=== PATIENT | male | born 1980 | race Caucasian/White ===

== ENCOUNTER → 2022-06-16 | Outpatient (CLI) | payer OTHER, SELFPAY ==
--- NOTE | 2022-06-16 17:13 | RAD_ITS ---
STUDY: X-RAY - RIGHT FOOT CLINICAL: Male, 42 years old. Pain in the arch of the foot. TECHNIQUE: 3 view(s) of the foot. COMPARISON: None. FINDINGS: Normal talus, calcaneus, and tarsal bones. Normal visualized subtalar, talonavicular, calcaneocuboid, tarsal and tarsometatarsal articulations. Normal metatarsi. Normal metatarsophalangeal joint of the great toe. Normal tibial and fibular sesamoid bones. Normal interphalangeal joint of the great toe. Normal phalanges of the great toe. Normal second through fifth metatarsophalangeal joints. Normal interphalangeal joints and phalanges of the lesser toes. The soft tissue structures are unremarkable. RAD/Foot min 3 Views IMPRESSION: Normal x-ray examination of the foot. Electronically Signed: Malvin Wilde DO at 18:28 EDT ,
--- NOTE | 2022-06-16 17:25 | RAD_ITS ---
STUDY: X-RAY - LEFT KNEE REASON FOR EXAM: Male, 42 years old. Chronic left knee pain. TECHNIQUE: 4 view(s) of the knee. COMPARISON: None. FINDINGS: Normal visualized distal femur. Normal visualized proximal tibia and fibula. Normal proximal tibiofibular articulation. There is no acute fracture, dislocation or destructive osseous pathology. Normal medial femorotibial compartment. Normal lateral femorotibial compartment. Normal patellofemoral articulation. There is no demonstrated joint effusion. The soft tissue structures are unremarkable. RAD/Knee 4 or More Views IMPRESSION: Normal x-ray examination of the left knee. Electronically Signed: Malvin Wilde DO at 18:28 EDT Reading Location ID and State: [facility] Tel [phone], Service support ,
== END | disposition home or self-care (01) ==
LOC: MTRAD 17:11
PROVIDERS: PCP Family Medicine; Referring Provider Family Medicine; Visit Provider Family Medicine
DX: M79.671 Pain in right foot (principal); M25.562 Pain in left knee
CPT/HCPCS: 73564; 73630

== ENCOUNTER 2024-02-01 23:35 | Inpatient (IN) | payer OTHER, SELFPAY ==
[2024-02-01 23:38] VITALS: BP 157/93; PULSE 68; RESP 18; TEMP 36.1; O2SAT 100; BMI 37.0
--- NOTE | 2024-02-01 23:55 | RAD_ITS ---
INDICATION: chest pain EXAMINATION/TECHNIQUE: X-RAY - XR Chest 1 View COMPARISON: No relevant prior comparison study available FINDINGS: LINES/DEVICES: None. LUNGS: The lungs are well expanded. No consolidation, edema or effusion. No pneumothorax. MEDIASTINUM AND CARDIOVASCULAR STRUCTURES: Cardiac silhouette not enlarged. Central airways and mediastinal contour are unremarkable. BONES AND SOFT TISSUES: No acute osseous abnormalities. RAD/Chest 1 View (Portable) IMPRESSION: No acute pulmonary finding. Electronically Signed: Chris Alejandre MD at 0:34 EDT ,
[2024-02-02] VITALS (16 sets, daily range): BP systolic 114–148; BP diastolic 70–102; PULSE 52–78; RESP 9–23; TEMP 36.1–36.7; O2SAT 93–100; BMI 37.2
[2024-02-02] MEDS: Ondansetron 4 MG/2 ML Vial IV (00:02)
--- NOTE | 2024-02-02 00:02 | EDS_ITS ---
HPI History of Present Illness Chief Complaint: Chest Pain Informant: patient and spouse/S.O. Narrative Narrative: Patient is a 44-year-old male who states he does not typically go to the doctor and denies any significant medical history. He also denies any history of smoking/nicotine use or illicit drug use. He states this evening he went out to the gym and was playing basketball. He states he did this without difficulty and once he returned home and sat down to relax developed bilateral chest/arm discomfort and broke out into a cold sweat. He states that the symptoms were not improving and he had concerned this was cardiac in nature and therefore he presents to the hospital for evaluation [facility] Medical History Heart defect Home Medications tadalafil 5 mg tablet (Cialis) 10 mg PO DAILY PRN sexual activity 02/01/24 [History Last Taken Unknown] Allergy/AdvReac Type Severity Reaction Status Date / Time No Known Allergies Allergy Verified 02/01/24 23:40 Family History Mother Myocardial infarction Father Heart disease Surgical History H/O knee surgery H/O repair of rotator cuff Social History household members: family housing: house Smoking Status: Smoker, status unknown tobacco type: cigarettes ROS ROS ED Constitutional Constitutional ED: Reports sweats; Denies chills or fever(s) Eyes Eyes: Denies change in vision ENT ENT ED: Denies sore throat Cardiovascular Cardiovascular: Reports chest pain; Denies palpitations or racing heartbeat Respiratory/Chest Respiratory/Chest: Denies cough or dyspnea Gastrointestinal Gastrointestinal: Denies abdominal pain, diarrhea, nausea or vomiting Genitourinary Genitourinary ED: Denies dysuria Musculoskeletal Musculoskeletal: Denies back pain or myalgias Integumentary Denies rash Neurologic Neurologic: Denies headache(s) Hematologic/Lymphatic Hematologic/Lymphatic: Denies easy bleeding or easy bruising EXAM Physical Exam Const Vital Signs: 02/01/24 23:38 02/02/24 00:07 05/09/24 00:07 Temperature 97 F L Temperature Source Temporal Pulse Rate 68 Respiratory Rate 18 Blood Pressure 157/93 H Blood Pressure Mean 114 Pulse Ox 100 100 100 Oxygen Delivery Method Room Air Nasal Cannula Nasal Cannula Oxygen Flow Rate (L/min) 2 2 Positive well nourished, well developed and obese General Appearance ED: well developed Nutritional Appearance: obese HEENT HEENT Narrative: Normocephalic atraumatic Eyes PERRL and EOMs intact bilaterally General Eye ED: Negative for scleral icterus Neck supple and no JVD Neck Narrative: No nuchal rigidity or meningeal signs Chest Wall palpation of chest normal Chest Narrative: No bony deformity or crepitance Resp normal respiratory effort and clear to auscultation bilaterally Cardio regular rate and regular rhythm Rate: other Other Details: Radial and carotid pulses are equal and symmetric GI normal to inspection, nondistended, normoactive bowel sounds, non-tender, non- distended and no masses GI Narrative: No pulsatile mass or fluid wave Auscultation: normoactive bowel sounds Palpation: soft Extremity normal to inspection Extremity Narrative: No asymmetric edema no pitting edema negative Homans' sign bilaterally Neuro oriented x3, CN's II-XII intact bilaterally and no sensory deficits noted Sensorium / Orientation: alert Motor Exam: strength 5/5 throughout Psych mental status grossly normal Skin no rashes or lesions noted Skin Narrative: Skin is diaphoretic in nature MDM MDM MDM Narrative Medical decision making narrative: Patient arrived to the ER hypertensive. He states that he does not typically see a doctor and does not have any known significant medical history but does report a history of MT in his mother and cardiac pacemaker in his father. He denies any illicit drug use or nicotine use but he is also overweight and a male over the age of 42 and therefore he does have risk factors for acute cardiovascular syndrome. An EKG was obtained which showed changes consistent with an inferior MT. Secondary to this a STEMI alert was activated. Case was discussed with the licensed dispensing optician on-call and he does agree with the diagnosis of acute STEMI. The patient was started on heparin and Brilinta and aspirin per STEMI protocol. Basic labs were obtained and he was taken to the cardiac Pricing Strategist for intervention. The patient did remain hemodynamically stable for his entire ER stay History & Record Review Discussion w/independent historian: Patient and Significant other Lab Data Attestation: I reviewed the patient's lab results. Labs: Laboratory Results - last 24 hr 02/02/24 00:01 WBC 15.7 H RBC 5.77 Hgb 15.7 Hct 47.1 MCV 81.6 MCH 27.2 MCHC 33.3 RDW Std Deviation 37.4 RDW Coeff of Anders 12.7 Plt Count 286 MPV 11.8 Immature Gran % (Auto) 0.300 Neut % (Auto) 64.7 Lymph % (Auto) 27.4 [place] % (Auto) 6.4 Eos % (Auto) 0.6 Baso % (Auto) 0.6 Absolute Neuts (auto) 10.2 H Absolute Lymphs (auto) 4.30 Nucleated RBC % 0 PT 14.3 INR 1.1 APTT 24.5 Sodium 141 Potassium 3.8 Chloride 109 H Carbon Dioxide 24.0 Anion Gap 8 BUN 24 H Creatinine 1.43 H Estim Creat Clear Calc 96.86 Est GFR (MDRD) Af Amer 70 Est GFR (MDRD) Non-Af 58 L BUN/Creatinine Ratio 16.8 Glucose 118 H Calcium 9.5 Troponin I High Sens 298 H* Radiography Diagnostic Testing: Clinical Impression(s) from Imaging Studies Chest X-Ray 02/01/24 23:55 IMPRESSION: No acute pulmonary finding. Electronically Signed: Chris Alejandre MD at 0:34 EDT , 1 view chest x-ray as interpreted by the emergency medicine physician reveals no acute infiltrate pneumothorax or pleural effusion Critical Care Time Critical Care Time: Yes Critical care time (excluding procedures): Discussing w/Patient &/or Family/Instruction Librarian, Discussing w/Consultants and - (Please note critical care time of 21 minutes) Discharge Plan Dx/Rx/DC Orders Clinical Impression: ST elevation (STEMI) myocardial infarction, Family history of coronary artery disease, Obesity (BMI 30-39.9) Disposition Disposition: Acute Care Hospital [facility] Discharge Date/Time: 02/02/24 00:30
[2024-02-02] MEDS: TICAGRELOR 90 MG TABLET 180 MG PO (00:03)
[2024-02-02] MEDS: Aspirin 81 MG TAB.CHEW 324 MG PO (00:03)
[2024-02-02] MEDS: HYDROmorphone 0.5 MG/0.5 ML SYRINGE IV (00:05)
[2024-02-02 00:14] LABS: Absolute Neutrophil Count 10.2 X10^3/uL (2.0-7.7); Basophil# 0.09 X10^3/uL; Basophil% 0.6 % (0-1); Eosinophils% 0.6 % (0-5); Hematocrit 47.1 % (40-54); Hemoglobin 15.7 g/dL (13.0-16.5); Lymphocyte % 27.4 % (19-41); Mean Corp Hgb Conc 33.3 g/dL (32-36); Mean Corpuscular Hgb 27.2 pg (27.0-32.0); Mean Corpuscular Volume 81.6 fL (80-94); Mean Platelet Vol. 11.8 fl (6.2-12.0); Monocyte# 1.01 X10^3/uL; Monocyte% 6.4 % (0-10); NRBC Flagged by Analyzer 0 % (0-5); Neutrophil # 10.17 X10^3/uL (2.7-7.7); Neutrophil % 64.7 % (47-70); Platelet Count 286 K/mm3 (150-450); RBC Distribution Width CV 12.7 % (11.6-14.6); RBC Distribution Width SD 37.4 fl (35.1-43.9); Red Blood Count 5.77 M/mm3 (4.6-6.2); White Blood Count 15.7 K/mm3 (4.4-11.0)
[2024-02-02 00:24] LABS: International Normalized Ratio 1.1; Prothrombin Time (Protime)PT. 14.3 SECONDS (11.7-14.9)
[2024-02-02 00:25] LABS: Partial Thromboplast Time 24.5 Seconds (24.1-36.2)
--- NOTE | 2024-02-02 00:31 | PCM.HP.STD ---
[facility] - General General Date of Admission: 02/02/24 Date of Service: 02/02/24 Chief Complaint: Chest Pain with Code STEMI. 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 Mr. Anna reports his symptoms began approximately 2 hours prior to admission when he was playing basketball and scored the waiting point but then he developed persistent chest pain that was unrelenting. He describes the chest pain as substernal, pressure-like, severe and radiating across his anterior chest wall with nothing seeming to make the pain better or worse. He then took a shower and tried to lay down to wait for symptoms to resolve and when his chest pain actually stopped he walked up the steps to go to bed and his chest pain recurred causing him to tell his that he needed to come into the hospital for further evaluation and treatment. He denies associated fever, chills, nausea, vomiting, recent injury, other similar previous episodes or other recent illness. In the ER he was noted to have EKG evidence of a STEMI in the inferior wall with ST elevation and II, III and aVF and reciprocal changes in 1 and aVL and he was emergently taken for Left heart cath by Dr. Weinberg of [facility] with patient noted to have a subtotal occlusion of the distal RCA with a thrombus with successful percutaneous intervention with balloon angioplasty and placement of 2 drug-eluting stents along with a ~90% lesion of the proximal Left Circumflex that was also successfully treated with a 3 x 30 mm drug-eluting stent with the patient then placed on aspirin, ticagrelor, beta-blockers and statin along with recommendation to lose weight. For some unknown reason this patient seems unwilling to proceed with AICD placement in spite of his previous recommendations and current issues. He was then admitted to the ICU for ongoing care under the STEMI protocol for stay that expected to extend beyond 2 midnights. [facility] Medical History Heart defect Home Medications tadalafil 5 mg tablet (Cialis) 10 mg PO DAILY PRN sexual activity 02/01/24 [History Last Taken Unknown] Allergy/AdvReac Type Severity Reaction Status Date / Time No Known Allergies Allergy Verified 02/01/24 23:40 Family History Mother Myocardial infarction Father Heart disease Surgical History H/O knee surgery H/O repair of rotator cuff Social History household members: family housing: house Smoking Status: Smoker, status unknown tobacco type: cigarettes ROS ROS Narrative Review of systems: General: Patient denies fever or chills HENT: Denies headache, denies stuffy nose, denies sore throat EYES: Denies changes in vision or discharge from eyes. Resp: Denies cough, denies shortness of breath Cardiac: Patient admits to chest pain as per HPI. GI: Denies abdominal pain, denies changes in bowel, had some nausea : Denies changes in urination Extremity: Denies swelling Musculoskeletal: Feels somewhat generally weak and unwell but denies arthralgias or myalgias. Neuro: Denies any numbness/tingling Heme: Denies any bleeding or bruising Skin: Denies rashes Psychiatric: No complaints voiced related to uncontrolled depression or anxiety but he does have a flat affect and seems to be unwilling to explain the reasoning behind why he did not have AICD placed previously in spite of his strong family history. Endocrine: No polyuria, polydipsia or polyphagia. The rest of the 14 point ROS was negative except for positives in HPI. Vital Signs Vital Signs Vital Signs: 02/01/24 23:38 02/02/24 00:07 Temperature 97 F L Temperature Source Temporal Pulse Rate 68 Respiratory Rate 18 Blood Pressure 157/93 H Blood Pressure Mean 114 Pulse Ox 100 100 Oxygen Delivery Method Room Air Nasal Cannula Oxygen Flow Rate (L/min) 2 Weight Weight: 289 lb 0.416 oz Body Mass Index (BMI) 37.0 Physical Exam Const alert, oriented x3, no apparent distress and average body habitus General Appearance: cooperative HEENT normocephalic, head/scalp atraumatic, hearing grossly normal bilaterally and moist oral mucous membranes Eyes PERRL and EOMs intact bilaterally Neck no lymphadenopathy and supple Resp normal respiratory effort, no retractions, no use of accessory muscles and clear to auscultation bilaterally Cardio regular rate and regular rhythm GI normal to inspection, nondistended, normoactive bowel sounds, soft to palpation, non-tender and non-distended Extremity normal to inspection, full ROM and no clubbing, cyanosis or edema Skin Skin Narrative: Patient has no evidence of jaundice, abscess or rash. Neuro oriented x3, CN's II-XII intact bilaterally, moves all extremities and no focal motor deficits Sensorium / Orientation: awake, alert, oriented to person, oriented to place and oriented to time Speech: speech normal Motor Exam: strength 5/5 throughout Psych Psych Narrative: Patient has a relatively flat affect and a tangential way of answering questions. Results Medical Records Data Attestation: I reviewed the patient's medical records Lab / Micro Data Attestation: I reviewed the patient's lab results. 02/02/24 02:55 02/02/24 02:55 Labs: Laboratory Results - last 24 hr 02/02/24 00:01: WBC 15.7 H, RBC 5.77, Hgb 15.7, Hct 47.1, MCV 81.6, MCH 27.2, MCHC 33.3, RDW Std Deviation 37.4, RDW Coeff of Anders 12.7, Plt Count 286, MPV 11.8, Immature Gran % (Auto) 0.300, Neut % (Auto) 64.7, Lymph % (Auto) 27.4, [place] % (Auto) 6.4, Eos % (Auto) 0.6, Baso % (Auto) 0.6, Absolute Neuts (auto) 10.2 H, Absolute Lymphs (auto) 4.30, Nucleated RBC % 0, PT 14.3, INR 1.1, APTT 24.5 Assessment & Plan Assessment/Plan (1) ST elevation (STEMI) myocardial infarction: QUALIFIERS: Involved coronary artery: other inferior wall coronary artery Qualified Code(s): I21.19 - ST elevation (STEMI) myocardial infarction involving other coronary artery of inferior wall (2) Obesity (BMI 30-39.9): (3) Hyperlipidemia: QUALIFIERS: Hyperlipidemia type: unspecified Qualified Code(s): E78.5 - Hyperlipidemia, unspecified (4) Hypertriglyceridemia: (5) Heart defect: (6) Family history of coronary artery disease: (7) Erectile dysfunction: QUALIFIERS: Erectile dysfunction type: unspecified Qualified Code(s): N52.9 - Male erectile dysfunction, unspecified PLAN: Plan 1. Chest pain with code STEMI having ST elevation in leads II, III and aVF in the setting of a known SN5CA sodium channelopathy causing Brugada syndrome vs Long-QT syndrome with subsequent emergent LHC resulting in JIMENA x 2 to distal RCA and 1 JIMENA to proximal LCX done by Dr. Weinberg of [facility] - Admit to ICU for treatment under the STEMI protocol. Check echocardiogram to evaluate LVEF. Give Tylenol as needed [id number] (level 1-5 out of 10) pain or fever. Give morphine IV as needed for severe (level 6-10 out of 10) pain. Finally, Dr. Weinberg's help is greatly appreciated. 2. Obesity; with BMI of 37.1 complicating #1 - Weight loss will be recommended. 3. History of hyperlipidemia and hypertriglyceridemia compounding #1 & #2 - Initiate statin and check lipid profile in AM. 4. Erectile dysfunction; on as needed Cialis - Noted. Patient may need to avoid this agent in the near future depending on cardiology recommendations. 5. History of knee surgery - Noted. 6. History of rotator cuff repair - Noted. 7. DVT prophylaxis - Patient on IV heparin for #1. Total time: Approximately 55 minutes. Charges/Coding Visit Charges Inpatient E&M: 43969 Init Hosp L2
[2024-02-02 00:58] LABS: Anion Gap 8 (5-15); BUN 24 mg/dL (7-18); BUN/Creat Ratio 16.8 RATIO (10-20); Calcium,Total 9.5 mg/dL (8.5-10.1); Chloride 109 mmol/L (98-107); Creatinine, Serum 1.43 mg/dL (0.70-1.30); EST Glomerular Filtration Rate 58 mL/min (>60); Est Glom Filt Rate - Afr Amer 70 mL/min (>60); Estimated Creatinine Clearance 96.86 ml/min; Glucose 118 mg/dL (74-106); Potassium 3.8 mmol/L (3.5-5.1); Sodium Level 141 mmol/L (136-145); Troponin-I HS 298 pg/mL (3.0-78.0)
--- NOTE | 2024-02-02 01:54 | CL.I_ITS ---
Patient Name: CURTIS ANNA Study Date: 02/02/2024 Performing: Jael Weinberg MD Ht: 74 inches 187.96 cm : 1980 Wt: 289.03 lbs 131.1 kg Age: 44 Gender: male BSA: 2.54 PROCEDURE(S) PERFORMED IC16-([id number])AMI, JIMENA OR PTCA, ARTERY/GRAFT, SINGLE VESSEL IC12-([id number])JIMENA W/WO PTCA, SINGLE CORONARY ARTERY [id number])C/COR CLINICAL PROFILE AND CO-MORBIDITIES Indications: ACS <= 24 hrs Heart Failure: None CAD Presentations: STEMI. Symptom onset Date/Time: 02/01/2024 Time Not Available CONCLUSIONS 99% distal RCA 90% Prox LCX (post-dilated using 2.75 mm balloon) Successful JIMENA Prox LCX using [place] 3.0x30 mm RECOMMENDATIONS ASA Indefinitlewilliam Brrehanata for at least 12 months DESCRIPTION OF PROCEDURE The patient arrived to the procedure lab. The risks and benefits of the procedure as well as a full description of our services here and lack of surgical backup were fully explained to the patient and/or their significant other prior to the catheterization. The Timeout was completed, verifying the correct patient and procedure. The patient's procedural site was prepped and draped in the usual fashion. Local anesthetic was given subcutaneously to right radial region with Lidocaine 2%. Using a modified Seldinger technique, arterial access was obtained via the right radial artery, a 6Fr sheath was inserted.. Right Coronary Artery selective angiography was then performed in multiple views using a 5 Fr. 4.0 [place] catheter. Left Coronary Artery selective angiography was performed in multiple views using a 5 Fr. 4.0 [place] catheter JR4 Guide catheter was inserted and engaged into the RCA. Runthrough Guide wire was advanced to the RCA. 2x12 [place] Balloon catheter was inserted. Balloon catheter was advanced across lesion in the right coronary, distal. PTCA balloon inflated at 6 atms for 8 secs. Angiogram performed post balloon dilatation. 2.5x15 [place] Drug Eluting stent was inserted. Drug Eluting stent was advanced across the lesion in the right coronary, distal. 3x30 [place] Drug Eluting stent was inserted. Drug Eluting stent was advanced across the lesion in the right coronary, distal. 3x30 [place] Emerge Balloon catheter was inserted. Balloon catheter was inserted post stent. Angiogram performed post stent deployment. 2.75 x12 [place] Emerge Balloon catheter was inserted. Balloon catheter was advanced across lesion in the right coronary, distal. Angiogram performed post balloon dilatation. XB 3 Guide catheter was inserted and engaged into the LCA. Runthrough Guide wire was advanced to the Circumflex. 3x30 [place] Drug Eluting stent was inserted. Drug Eluting stent was advanced across the lesion in the circumflex, proximal. 3x30 [place] Emerge Balloon catheter was inserted. Balloon catheter was inserted post stent. Angiogram performed post balloon dilatation. The arterial sheath was pulled and a TR Band was applied for hemostasis. 10cc of air CORONARY ANGIOGRAPHY DOMINANCE: Right Dominant LEFT HEART ASSESSMENT Left Ventricular Ejection Fraction: Not assessed LEFT MAIN: Angiographically normal LEFT ANTERIOR DESCENDING ARTERY: LAD: Tubular 20% Proximal lesion in LAD Luminal Irregularities 20% Mid lesion in LAD RIGHT CORONARY ARTERY: RCA: Tubular 50% Mid lesion in RCA Complex 99% Distal lesion in RCA Tubular 70% Distal lesion in RCA INTERVENTION INFORMATION LESION SITE: RCA (Distal) Lesion Complexity: High/C, thrombus present: Yes, lesion length: 40 mm, culprit lesion: Yes Pre Stenosis: 99 % Pre intervention DAX flow: 2 PROCEDURE: Drug Eluting Stent with pre and post dilatation Post Stenosis: 0 % Post intervention ADX flow: 3 Lesion Devices: Cordis 6 Fr JR4 100cm Guide Catheter Terumo .014 180cm Runthrough Extra Floppy straight Josse Sci EMERGE MR 2.00x12 BALLOON Medtronic 2.50 x 15 OTIS FRONTIER JIMENA Medtronic 3.0 x 30 OTIS FRONTIER JIMENA Josse Sci NC EMERGE MR 3.00x30 BALLOON Josse Sci NC EMERGE MR 2.75x12 BALLOON LESION SITE: Circumflex (Proximal) Lesion Complexity: High/C, lesion length: 28 mm, culprit lesion: No Pre Stenosis: 90 % Pre intervention DAX flow: 3 Post Stenosis: 0 % Post intervention DAX flow: 3 Lesion Devices: Terumo .014 180cm Runthrough Extra Floppy straight Josse Sci NC EMERGE MR 3.00x30 BALL[place] Cordis 6 Fr XB3.0 100cm Guide Catheter Medtronic 3.0 x 30 OTIS FRONTIER JIMENA COMPLICATIONS No Complications PROCEDURE MEDICATIONS Fentanyl 50 mcg IV Versed 1 mg IV Fentanyl 50 mcg IV Oxygen: 2 L/min via nasal cannula Atropine 1mg/10ml 0.5 amp @ 02/02/2024 00:51:25 Heparin given IA 02/02/2024 00:38:18 Heparin 36008 unit(s) IV 02/02/2024 00:44:05 Heparin 5000 unit(s) IV 02/02/2024 01:20:19 Heparin 3000 unit(s) IV 02/02/2024 01:44:02 Nitro 50 mcg IC 02/02/2024 01:06:08 Verapamil 2.5mg, Ntg 200mcgs, 2000 units of Heparin given IA 02/02/2024 00:38:18 SUMMARY OF HEMODYNAMIC DATA Time AIR REST ECG 00:29:43 AO 133/76 (95) SA 00:41:08 AO 113/76 (92) 01:10:42 01:45:20 Signed By Jael Weinberg MD On 02/02/2024 01:53:14 Jael Weinberg MD
--- NOTE | 2024-02-02 01:54 | ECHOCS_ITS ---
Reason For Study: CAD/ASHD Procedure This was a 2D Doppler, Color Flow transthoracic echocardiogram. The study was technically difficult. Due to body habitus. Contrast injection was performed. Exam performed portable in ICU/CCU. Left Ventricle Normal size and thickness. The left ventricular ejection fraction is 55 %. Normal diastololic function. Inferior hypokinesis. Right Ventricle Normal right ventricle. Atria The left and right atria are normal. Mitral Valve Thickened papillary muscle. Tricuspid Valve Normal tricuspid valve. Aortic Valve Trisinus/trileaflet aortic valve. Pulmonic Valve The pulmonic valve is not well visualized. Great Vessels Normal sized aortic root. Pericardium/Pleural No pericardial effusion. Medication Diluted definity 2.0ml given slow IV push to enhance endocardial definition. MMode/2D Measurements & Calculations LVIDd: 5.0 cm IVSd: 0.99 cm Ao root diam: 3.3 cm LVIDs: 3.8 cm LVPWd: 1.1 cm RVDd: 4.1 cm FS: 23.2 % LAV(MOD-bp): 78.6 ml LVAd ap4: 32.6 cm2 LVAd ap2: 31.7 cm2 LAV(MOD-bp) Indexed: 30.9 ml/m2 LVLd ap4: 8.5 cm LVLd ap2: 9.4 cm LAV(MOD-sp2): 84.2 ml EDV(MOD-sp4): 103.3 ml EDV(MOD-sp2): 89.6 ml LAV(MOD-sp4): 67.5 ml EDV(sp4-el): 106.9 ml EDV(sp2-el): 90.6 ml LVAs ap4: 21.5 cm2 LVAs ap2: 19.5 cm2 LVLs ap4: 8.1 cm LVLs ap2: 8.0 cm ESV(MOD-sp4): 49.1 ml ESV(MOD-sp2): 39.8 ml ESV(sp4-el): 48.4 ml ESV(sp2-el): 40.7 ml EF(MOD-sp4): 52.5 % EF(MOD-sp2): 55.6 % EF(sp4-el): 54.7 % SV(MOD-sp4): 54.2 ml SV(MOD-sp2): 49.8 ml SV(sp4-el): 58.5 ml LA A4 area: 22.7 cm2 LA dimension(2D): 3.9 cm RA A4 area: 19.4 cm2 TAPSE: 2.5 cm Time Measurements MV dec time: 0.20 sec Doppler Measurements & Calculations MV E max josue: 84.4 cm/sec Lat Peak E' Josue: 9.5 cm/sec Med Peak E' Josue: 12.1 cm/sec MV A max josue: 52.5 cm/sec E/E' lat: 8.9 E/E' med: 7.0 MV E/A: 1.6 MV V2 max: 83.7 cm/sec MV P1/2t max josue: 83.7 cm/sec Ao V2 max: 107.2 cm/sec MV max P.8 mmHg MV P1/2t: 58.8 msec Ao max P.6 mmHg MV V2 mean: 40.4 cm/sec Ao V2 mean: 67.1 cm/sec MV mean P.81 mmHg MV dec slope: 416.7 cm/sec2 Ao mean P.2 mmHg MV V2 VTI: 25.6 cm MVA(P1/2t): 3.7 cm2 Ao V2 VTI: 21.5 cm AV (velocity ratio): 0.84 LV V1 max: 85.0 cm/sec PA V2 max: 105.2 cm/sec LV V1 max P.9 mmHg PA V2 mean: 64.0 cm/sec LV V1 mean P.5 mmHg LV V1 mean: 55.3 cm/sec LV V1 VTI: 18.0 cm ECHO/Echo Complete W/ Contrast Interpretation Summary The left ventricular ejection fraction is 55 %. Inferior hypokinesis. Thickened papillary muscles. The study was technically difficult. Ordering Physician: Jael Weinberg Referring Physician: Hill Gan Performed By: Zully Alvarado, RDCS, RVT
--- NOTE | 2024-02-02 02:03 | CON.PCM.CA_ITS ---
Assessment & Plan Assessment/Plan (1) ST elevation (STEMI) myocardial infarction: QUALIFIERS: Involved coronary artery: other inferior wall coronary artery Qualified Code(s): I21.19 - ST elevation (STEMI) myocardial infarction involving other coronary artery of inferior wall PLAN: Emergent coronary angiography was undertaken. It revealed subtotal occlusion in the distal RCA with a thrombus. Successful percutaneous intervention was performed with balloon angioplasty and placement of 2 drug- eluting stents. Recommend aspirin lifelong. Ticagrelor for at least 1 year. Check echo. (2) Coronary artery disease: PLAN: See #1 above. Patient was also noted to have about 90% lesion in the proximal left circumflex. This was successfully treated using a 3.0 x 30 mm drug-eluting stent. Aspirin, ticagrelor. Beta-blockers. Statins. Lose weight. (3) Obesity (BMI 30-39.9): PLAN: Lose weight. (4) Erectile dysfunction: PLAN: Plan Possible history of Brugada syndrome. Will try to gather information. HPI Consult Data Date of Consult: 02/02/24 HPI Narrative Reason for Consultation: STEMI HPI Narrative: This gentleman has past medical history significant for obesity, erectile dysfunction and possibly Brugada syndrome. He presented to the emergency room with complaints of acute onset of bilateral arm and chest discomfort. An ECG on arrival to the emergency room showed changes consistent with acute inferior posterior myocardial infarction. Subsequently a STEMI alert was called. No previous history of coronary artery disease. No history of ventricular tachy arrhythmias. Per him, he has heart defect. Per his , the patient, his father and daughter all have Brugada syndrome. [facility] Medical History (Updated 02/02/24 @ 02:[address] Jael Weinberg MD) Heart defect Home Medications tadalafil 5 mg tablet (Cialis) 10 mg PO DAILY PRN sexual activity 02/01/24 [History Last Taken Unknown] Allergy/AdvReac Type Severity Reaction Status Date / Time No Known Allergies Allergy Verified 02/01/24 23:40 Family History Mother Myocardial infarction Father Heart disease Surgical History H/O knee surgery H/O repair of rotator cuff Social History household members: family housing: house Smoking Status: Smoker, status unknown tobacco type: cigarettes Physical Exam Narrative Obese. Mildly distressed. Heart sounds 1 and 2 noted. Chest clear to auscultation bilaterally. Alert oriented x 3. No ankle edema. Risk Stratification Risk Stratification Applicable: No Objective Data Vital Signs: Vital Signs Temp Pulse Resp BP Pulse Ox O2 Del Method O2 Flow Rate 98.0 F 67 16 148/82 H 100 Nasal Cannula 2 02/02/24 00:43 02/02/24 00:43 02/02/24 00:43 02/02/24 00:43 02/02/24 00:43 02/02/24 00:07 02/02/24 00:07 Oxygen Flow Rate (L/min) 2 Oxygen Delivery Method Nasal Cannula Weight: 289 lb 0.416 oz Body Mass Index (BMI) 37.0 Lab / Micro Data 02/02/24 00:01 02/02/24 00:01 Labs: Laboratory Results - last 24 hr 02/02/24 00:01: WBC 15.7 H, RBC 5.77, Hgb 15.7, Hct 47.1, MCV 81.6, MCH 27.2, MCHC 33.3, RDW Std Deviation 37.4, RDW Coeff of Anders 12.7, Plt Count 286, MPV 11.8, Immature Gran % (Auto) 0.300, Neut % (Auto) 64.7, Lymph % (Auto) 27.4, [place] % (Auto) 6.4, Eos % (Auto) 0.6, Baso % (Auto) 0.6, Absolute Neuts (auto) 10.2 H, Absolute Lymphs (auto) 4.30, Nucleated RBC % 0, PT 14.3, INR 1.1, APTT 24.5, Sodium 141, Potassium 3.8, Chloride 109 H, Carbon Dioxide 24.0, Anion Gap 8, BUN 24 H, Creatinine 1.43 H, Estim Creat Clear Calc 96.86, Est GFR (MDRD) Af Amer 70, Est GFR (MDRD) Non-Af 58 L, BUN/Creatinine Ratio 16.8, Glucose 118 H, Calcium 9.5, Troponin I High Sens 298 H* Cardiology Labs/Tests 02/02/24 00:01: WBC 15.7 H, RBC 5.77, Hgb 15.7, Hct 47.1, MCV 81.6, MCH 27.2, MCHC 33.3, Plt Count 286, MPV 11.8, Immature Gran % (Auto) 0.300, Neut % (Auto) 64.7, Lymph % (Auto) 27.4, [place] % (Auto) 6.4, Eos % (Auto) 0.6, Baso % (Auto) 0.6, Absolute Neuts (auto) 10.2 H, Nucleated RBC % 0, PT 14.3, INR 1.1, APTT 24.5, Sodium 141, Potassium 3.8, Chloride 109 H, Carbon Dioxide 24.0, Anion Gap 8, BUN 24 H, Creatinine 1.43 H, Est GFR (MDRD) Af Amer 70, Est GFR (MDRD) Non-Af 58 L, BUN/Creatinine Ratio 16.8, Glucose 118 H, Calcium 9.5 Rhythm: EKG: ECG done in the emergency room showed sinus rhythm with ST changes consistent with acute inferior posterior myocardial infarction. ECHO: Stress Test: Cardiac Cath: PCI: CT Surgery: Holter monitor: EPS: PPM: CXR: Chest CT Scan: Radiography Diagnostic Testing: Radiology Impression Chest X-Ray 02/01/24 23:55 IMPRESSION: No acute pulmonary finding. Electronically Signed: Chris Alejandre MD at 0:34 EDT ,
[2024-02-02] MEDS: 0.9% Saline Lock 10 ML Syringe IV (02:45)
[2024-02-02] MEDS: 0.9% Normal Saline (1000mL) 1,000 ML 100 ML IV (02:45)
[2024-02-02 03:05] LABS: Hematocrit 43.2 % (40-54); Hemoglobin 14.6 g/dL (13.0-16.5); Mean Corp Hgb Conc 33.8 g/dL (32-36); Mean Corpuscular Hgb 27.7 pg (27.0-32.0); Mean Corpuscular Volume 81.8 fL (80-94); Mean Platelet Vol. 11.3 fl (6.2-12.0); Platelet Count 245 K/mm3 (150-450); RBC Distribution Width CV 12.7 % (11.6-14.6); RBC Distribution Width SD 37.6 fl (35.1-43.9); Red Blood Count 5.28 M/mm3 (4.6-6.2); White Blood Count 14.2 K/mm3 (4.4-11.0)
[2024-02-02 03:20] LABS: ALB/GLOB Ratio 1.4 RATIO (0.9-2.4); AST(SGOT) 43 U/L (15-37); Alanine Aminotransfer ALT/SGPT 72 U/L (16-61); Alkaline Phosphatase 38 U/L (45-117); Anion Gap 7 (5-15); BUN 20 mg/dL (7-18); BUN/Creat Ratio 18.2 RATIO (10-20); Calcium,Total 8.8 mg/dL (8.5-10.1); Chloride 110 mmol/L (98-107); Cholesterol 187 mg/dL (200); EST Glomerular Filtration Rate 78 mL/min (>60); Est Glom Filt Rate - Afr Amer 94 mL/min (>60); Estimated Creatinine Clearance 126.16 ml/min; Globulin 2.8 g/dL (2.2-4.2); Glucose 129 mg/dL (74-106); High Density Lipoprotein 33 mg/dL; Potassium 3.8 mmol/L (3.5-5.1); Protein, Total 6.8 g/dL (6.4-8.2); Sodium Level 140 mmol/L (136-145); Triglycerides 64 mg/dL; Very Low Density Lipoprotein 13 mg/dL (5-40)
--- NOTE | 2024-02-02 07:41 | CRPHASE1 ---
Patient Communication Patient Information PHII Cardiac Rehab Discussed with Patient:: Yes Guide to Cardiac Rehab Given to Patient:: Yes Cardiac Rehab Facility Choice List Given to Patient:: Yes Communication to Cardiac Rehab Choice Program [facility] CR PHII:: Communication Given to CR Library Acquisitions Technician:: Jael Weinberg Phase II Cardiac Rehab:: Yes Sessions:: 36 sessions - 3 days/wk, 12 weeks Cardiac Rehabilitation Info Program Information Cardiac Rehabilitation Program Information: Cardiac Rehab The cardiac rehab team at [facility] consists of highly skilled exercise physiologists, nurses, respiratory therapists and physicians working together with you. Our purpose is to help you have a full recovery and achieve the goals you set for yourself. Over the years many of our patients have returned to activities they assumed they would never do again! We can help restore your confidence and motivation to make lifestyle changes that can have a significant impact on your health and quality of life! We can help answer questions and concerns you may have about exercise, lifestyle, medications, diet, stress and anxiety which are common following a hospitalization. WE monitor ECG and vital signs during exercise and discuss your progress with you and report to your physician(s). Cardiac Rehab is proven to help reduce readmissions, improve functional capacity and lower recurrence of problems with your heart. Our Cardiac Rehab program is Certified by the [place] [employer]-Vascular [employer] Pulmonary [employer] (AACVPR) and Accredited by the [place] [employer] through our [facility]. You can contact us at . We invite you to call us with your questions or to get started in our program. If you have other questions or concerns be sure to ask your physician/provider during your follow-up visit. WE look forward to seeing you!
--- NOTE | 2024-02-02 07:42 | CRPH1.INSTRU ---
General Education Discussed with Patient CAD and cardiac anatomy and function:: Patient communicates acknowledgment Explanation of diagnoses and procedures:: Patient communicates acknowledgment Sign/Symptoms of GA:: Patient communicates acknowledgment Antiplatelet therapy: Patient communicates acknowledgment Proper use of NTG-SL: Patient communicates acknowledgment Emergency procedures and activation of EMS: Patient communicates acknowledgment Compliance of all prescribed medications: Patient communicates acknowledgment Smoking Risk Factors Patient Nicotine/Smoking Risk Factors Are:: Non-smoker Dyslipidemia Risk Factors Patient Dyslipidemia Risk Factors Are:: Total Cholesterol, Triglycerides, HDL and LDL Recommendations Recommendations Include:: Lipid profile not available Response Code Dyslipidemia Response Code:: Patient communicates acknowledgment Overweight/Obesity Risk Factors Patient Overweight/Obesity Risk Factors Are:: Obesity - > or = 30 Recommendations Recommendations Include:: Weight loss of 5-10%, Reduced calorie diet and Exercise 5-7 times/week Response Code Overweight/Obesity:: Patient communicates acknowledgment Hypertension Recommendations Recommendations Include:: Maintain BP <130/85, Decrease/maintain normal body weight and Moderation of ETOH Response Code Hypertension:: Patient communicates acknowledgment Heart Disease Risk Factors Patient Heart Disease Risk Factors Are:: Family history of heart disease < 65 years old Recommendations Recommendations Include:: Educated family members of their risk and Educated family members of importance of prevention of heart disease Response Code Heart Disease Response Code:: Patient communicates acknowledgment Sedentary Risk Factors Patient Sedentary Risk Factors Are:: Lack of regular exercise Recommendations Recommendations Include:: Aerobic exercise 5-7 times/week for 20-30 minutes continuously, Benefits of regular exercise, Discussed home walking program and Monitored Outpatient Cardiac Rehab Response Code Sedentary Response Code:: Patient communicates acknowledgment
[2024-02-02] MEDS: TICAGRELOR 90 MG TABLET PO ×2 (09:46→21:03)
[2024-02-02] MEDS: Aspirin E.C. 81 MG Tablet PO (09:46)
[2024-02-02] MEDS: Lisinopril 2.5 MG Tablet PO (09:46)
[2024-02-02] MEDS: Carvedilol 3.125 MG TABLET PO ×2 (09:47→21:03)
--- NOTE | 2024-02-02 10:09 | PN.CARD_ITS ---
Subjective Subjective Denies any complaints. No chest pains. No shortness of breath. Objective Data Vital Signs: Vital Signs Temp Pulse Resp BP Pulse Ox O2 Del Method O2 Flow Rate 97.9 F 61 19 H 137/88 H 94 Room Air 2 02/02/24 08:00 02/02/24 10:00 02/02/24 10:00 02/02/24 10:00 02/02/24 10:00 02/02/24 10:00 02/02/24 02:05 Oxygen Flow Rate (L/min) 2 Oxygen Delivery Method Room Air Weight: 290 lb 2.053 oz Body Mass Index (BMI) 37.2 Intake & Output: Intake and Output for Last 24 Hours 01/31/24 02/01/24 02/02/24 23:59 23:59 23:59 Output Total 900 / 900 Balance -900 / -900 Lab / Micro Data 02/02/24 02:55 02/02/24 02:55 Labs: Laboratory Results - last 24 hr 02/02/24 00:01: WBC 15.7 H, RBC 5.77, Hgb 15.7, Hct 47.1, MCV 81.6, MCH 27.2, MCHC 33.3, RDW Std Deviation 37.4, RDW Coeff of Anders 12.7, Plt Count 286, MPV 11.8, Immature Gran % (Auto) 0.300, Neut % (Auto) 64.7, Lymph % (Auto) 27.4, [place] % (Auto) 6.4, Eos % (Auto) 0.6, Baso % (Auto) 0.6, Absolute Neuts (auto) 10.2 H, Absolute Lymphs (auto) 4.30, Nucleated RBC % 0, PT 14.3, INR 1.1, APTT 24.5, Sodium 141, Potassium 3.8, Chloride 109 H, Carbon Dioxide 24.0, Anion Gap 8, BUN 24 H, Creatinine 1.43 H, Estim Creat Clear Calc 96.86, Est GFR (MDRD) Af Amer 70, Est GFR (MDRD) Non-Af 58 L, BUN/Creatinine Ratio 16.8, Glucose 118 H, Calcium 9.5, Troponin I High Sens 298 H* 02/02/24 02:55: WBC 14.2 H, RBC 5.28, Hgb 14.6, Hct 43.2, MCV 81.8, MCH 27.7, MCHC 33.8, RDW Std Deviation 37.6, RDW Coeff of Anders 12.7, Plt Count 245, MPV 11.3, Sodium 140, Potassium 3.8, Chloride 110 H, Carbon Dioxide 23.0, Anion Gap 7, BUN 20 H, Creatinine 1.10, Estim Creat Clear Calc 126.16, Est GFR (MDRD) Af Amer 94, Est GFR (MDRD) Non-Af 78, BUN/Creatinine Ratio 18.2, Glucose 129 H, Calcium 8.8, Total Bilirubin 1.00, AST 43 H, ALT 72 H, Alkaline Phosphatase 38 L , Total Protein 6.8, Albumin 4.0, Globulin 2.8, Albumin/Globulin Ratio 1.4, Triglycerides 64, Cholesterol 187, LDL Cholesterol 141 H, VLDL Cholesterol 13, HDL Cholesterol 33 L Rhythm Strip Rhythm Strip: Sinus Rhythm Cardiology Labs/Tests 02/02/24 00:01: WBC 15.7 H, RBC 5.77, Hgb 15.7, Hct 47.1, MCV 81.6, MCH 27.2, MCHC 33.3, Plt Count 286, MPV 11.8, Immature Gran % (Auto) 0.300, Neut % (Auto) 64.7, Lymph % (Auto) 27.4, [place] % (Auto) 6.4, Eos % (Auto) 0.6, Baso % (Auto) 0.6, Absolute Neuts (auto) 10.2 H, Nucleated RBC % 0, PT 14.3, INR 1.1, APTT 24.5, Sodium 141, Potassium 3.8, Chloride 109 H, Carbon Dioxide 24.0, Anion Gap 8, BUN 24 H, Creatinine 1.43 H, Est GFR (MDRD) Af Amer 70, Est GFR (MDRD) Non-Af 58 L, BUN/Creatinine Ratio 16.8, Glucose 118 H, Calcium 9.5 02/02/24 02:55: WBC 14.2 H, RBC 5.28, Hgb 14.6, Hct 43.2, MCV 81.8, MCH 27.7, MCHC 33.8, Plt Count 245, MPV 11.3, Sodium 140, Potassium 3.8, Chloride 110 H, Carbon Dioxide 23.0, Anion Gap 7, BUN 20 H, Creatinine 1.10, Est GFR (MDRD) Af Amer 94, Est GFR (MDRD) Non-Af 78, BUN/Creatinine Ratio 18.2, Glucose 129 H, Calcium 8.8, Total Bilirubin 1.00, Triglycerides 64, Cholesterol 187, LDL Ch olesterol 141 H, VLDL Cholesterol 13, HDL Cholesterol 33 L Rhythm: EKG: Sinus rhythm. ECHO: Stress Test: Cardiac Cath: PCI: CT Surgery: Holter monitor: EPS: PPM: CXR: Chest CT Scan: Radiography Diagnostic Testing: Radiology Impression Chest X-Ray 02/01/24 23:55 IMPRESSION: No acute pulmonary finding. Electronically Signed: Chris Alejandre MD at 0:34 EDT , Physical Exam Narrative Comfortable. No distress. Heart sounds 1 and 2 are normal. No murmurs or rubs are noted. Chest clear to auscultation bilaterally. Alert oriented x 3. No ankle edema. Assessment & Plan Assessment/Plan (1) ST elevation (STEMI) myocardial infarction: QUALIFIERS: Involved coronary artery: other inferior wall coronary artery Qualified Code(s): I21.19 - ST elevation (STEMI) myocardial infarction involving other coronary artery of inferior wall PLAN: Status post drug-eluting stents to the distal RCA. Continue aspirin lifelong. Ticagrelor for at least 1 year. (2) Coronary artery disease: PLAN: See #1 above. Patient was also noted to have about 90% lesion in the proximal left circumflex. This was successfully treated using a 3.0 x 30 mm drug-eluting stent. Aspirin, ticagrelor. Beta-blockers. Statins. Lose weight. (3) Dyslipidemia: PLAN: Atorvastatin. (4) Hypertension: PLAN: Carvedilol, lisinopril. (5) Obesity (BMI 30-39.9): PLAN: Lose weight. 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 Workup revealed positive SCN5a mutation. Subsequently the patient and his father also tested positive for the same gene mutation. No history of sudden cardiac . No history of arrhythmias. PLAN: Plan Discharge home tomorrow if remains hemodynamically stable.
--- NOTE | 2024-02-02 10:23 | CASEMGMT ---
JEOVANNY WHITE Assessment Face to Face with patient for initial transition planning/care coordination assessment. JEOVANNY WHITE introduced self and role at [facility], pt voices understanding. Pt is A&Ox4 and is resting comfortably in bed and is calm. Pt at bedside. Care providers, pharmacy, and demographics verified. Admitting dx: STEMI LACE Strata: 1 PCP: [facility] Specialists: Denies. Pt is being seen by Dr. Weinberg here Preferred Pharmacy: [facility] Insurance: [facility] Prescription Benefit: Yes LNOK: Lelo Mann (W) Living Arrangements: Pt lives with his and 3 daughters (ages 10,8,6) in a 2 story home with 3 steps to enter ADLs/IADLs: Ind Transportation: Self, W DME: BP Cuff, Pulse Ox. Pt denies all other DME uses or needs HHC/SNF: Denies history or needs Pt?s goal: Home Plan: Pt states that he plans to DC tomorrow. Pt was given the cardiac rehab packet of information but states that he was not provided with further information regarding this. Pt states that if he is recommended to f/u with the cardiac rehab program here that he will call to make his own appt. Pt denies further questions or concerns at this time. CM to follow for safe DC from [facility]. Andrea Hoover RN, CM
--- NOTE | 2024-02-02 13:23 | PN.HOSP_ITS ---
Reason for Visit Reason for Visit: Diagnoses Obesity, unspecified (02/02/24) Pure hyperglyceridemia (02/02/24) Hyperlipidemia, unspecified (02/02/24) Essential (primary) hypertension (02/02/24) ST elevation (STEMI) myocardial infarction involving other coronary artery of inferior wall (02/02/24) ST elevation (STEMI) myocardial infarction of unspecified site (02/02/24) Atherosclerotic heart disease of [place] coronary artery without angina pectoris (02/02/24) Male erectile dysfunction, unspecified (02/02/24) Congenital malformation of heart, unspecified (02/02/24) Genetic susceptibility to other disease (02/02/24) Family history of ischemic heart disease and other diseases of the circulatory system (02/02/24) Subjective Subjective Chest pain free. No shortness of breath. Objective Data Objective Data Vital Signs: Vital Signs Temp Pulse Resp BP Pulse Ox O2 Del Method O2 Flow Rate 36.6 C 61 19 H 137/88 H 94 Room Air 2 02/02/24 08:00 02/02/24 10:00 02/02/24 10:00 02/02/24 10:00 02/02/24 10:00 02/02/24 10:00 02/02/24 02:05 Oxygen Flow Rate (L/min) 2 Oxygen Delivery Method Room Air Weight: 131.6 kg Body Mass Index (BMI) 37.2 Intake & Output: Intake and Output for Last 24 Hours 01/31/24 02/01/24 02/02/24 23:59 23:59 23:59 Intake Total 1000 / 1000 Output Total 1100 / 1100 Balance -100 / -100 Lab / Micro Data 02/02/24 02:55 02/02/24 02:55 Labs: Laboratory Results - last 24 hr 02/02/24 00:01: WBC 15.7 H, RBC 5.77, Hgb 15.7, Hct 47.1, MCV 81.6, MCH 27.2, MCHC 33.3, RDW Std Deviation 37.4, RDW Coeff of Anders 12.7, Plt Count 286, MPV 11.8, Immature Gran % (Auto) 0.300, Neut % (Auto) 64.7, Lymph % (Auto) 27.4, [place] % (Auto) 6.4, Eos % (Auto) 0.6, Baso % (Auto) 0.6, Absolute Neuts (auto) 10.2 H, Absolute Lymphs (auto) 4.30, Nucleated RBC % 0, PT 14.3, INR 1.1, APTT 24.5, Sodium 141, Potassium 3.8, Chloride 109 H, Carbon Dioxide 24.0, Anion Gap 8, BUN 24 H, Creatinine 1.43 H, Estim Creat Clear Calc 96.86, Est GFR (MDRD) Af Amer 70, Est GFR (MDRD) Non-Af 58 L, BUN/Creatinine Ratio 16.8, Glucose 118 H, Calcium 9.5, Troponin I High Sens 298 H* 02/02/24 02:55: WBC 14.2 H, RBC 5.28, Hgb 14.6, Hct 43.2, MCV 81.8, MCH 27.7, MCHC 33.8, RDW Std Deviation 37.6, RDW Coeff of Anders 12.7, Plt Count 245, MPV 11.3, Sodium 140, Potassium 3.8, Chloride 110 H, Carbon Dioxide 23.0, Anion Gap 7, BUN 20 H, Creatinine 1.10, Estim Creat Clear Calc 126.16, Est GFR (MDRD) Af Amer 94, Est GFR (MDRD) Non-Af 78, BUN/Creatinine Ratio 18.2, Glucose 129 H, Calcium 8.8, Total Bilirubin 1.00, AST 43 H, ALT 72 H, Alkaline Phosphatase 38 L , Total Protein 6.8, Albumin 4.0, Globulin 2.8, Albumin/Globulin Ratio 1.4, Triglycerides 64, Cholesterol 187, LDL Cholesterol 141 H, VLDL Cholesterol 13, HDL Cholesterol 33 L Radiography Diagnostic Testing: Radiology Impression Chest X-Ray 02/01/24 23:55 IMPRESSION: No acute pulmonary finding. Electronically Signed: Chris Alejandre MD at 0:34 EDT , Echocardiogram 02/02/24 01:54 Interpretation Summary The left ventricular ejection fraction is 55 %. Inferior hypokinesis. Thickened papillary muscles. The study was technically difficult. Ordering Physician: Jael Weinberg Referring Physician: [facility] Performed By: Zully Alvarado, SUSANNE, RVT Rhythm Strip Rhythm Strip: Sinus Rhythm Physical Exam Const alert and no apparent distress Psych affect normal Assessment & Plan Assessment/Plan (1) ST elevation (STEMI) myocardial infarction: QUALIFIERS: Involved coronary artery: other inferior wall coronary artery Qualified Code(s): I21.19 - ST elevation (STEMI) myocardial infarction involving other coronary artery of inferior wall (2) Obesity (BMI 30-39.9): (3) Hyperlipidemia: QUALIFIERS: Hyperlipidemia type: unspecified Qualified Code(s): E78.5 - Hyperlipidemia, unspecified (4) Hypertriglyceridemia: (5) Heart defect: (6) Family history of coronary artery disease: (7) Erectile dysfunction: QUALIFIERS: Erectile dysfunction type: unspecified Qualified Code(s): N52.9 - Male erectile dysfunction, unspecified PLAN: Plan STEMI: * s/p JIMENA x 2 to distal RCA and 1 JIMENA to proximal LCX * Echo shows an EF 55% with inferior hypokinesis. * Continue with ASA, ticagrelo, carvedilol, lisinopril, atorvastatin Chronic conditions: * Obesity; with BMI of 37.1 * History of hyperlipidemia and hypertriglyceridemia compounding statin and check lipid profile in AM. VTE prophylaxis: LMWH. . Charges/Coding Procedures Hospitalists Procedures: Other Procedure - See Report (Nonbillable rounding as patient was admitted after midnight.)
[2024-02-02 15:39] LABS: ACT Activated Clotting Time 214 sec (74-137)
[2024-02-02 15:39] LABS: ACT Activated Clotting Time 152 sec (74-137)
[2024-02-02 15:39] LABS: ACT Activated Clotting Time 250 sec (74-137)
[2024-02-02] MEDS: Atorvastatin Calcium 80 MG Tablet PO (21:03)
[2024-02-03 02:45] VITALS: BP 126/76; PULSE 52; RESP 14; TEMP 36.6; O2SAT 95
[2024-02-03 04:39] VITALS: BMI 37.2
[2024-02-03 08:32] VITALS: O2SAT 96
--- NOTE | 2024-02-03 09:42 | PN.CARD_ITS ---
Subjective Subjective Doing good. Denies any complaints. Objective Data Vital Signs: Vital Signs Temp Pulse Resp BP Pulse Ox O2 Del Method O2 Flow Rate 97.9 F 52 L 14 126/76 H 95 Room Air 2 02/03/24 02:45 02/03/24 02:45 02/03/24 02:45 02/03/24 02:45 02/03/24 02:45 02/03/24 02:45 02/02/24 02:05 Oxygen Flow Rate (L/min) 2 Oxygen Delivery Method Room Air Weight: 290 lb 2.053 oz Body Mass Index (BMI) 37.2 Intake & Output: Intake and Output for Last 24 Hours 02/01/24 02/02/24 02/03/24 23:59 23:59 23:59 Intake Total 1000 / 1000 Output Total 1100 / 1100 Balance -100 / -100 Lab / Micro Data 02/02/24 02:55 02/02/24 02:55 Labs: Laboratory Results - last 24 hr 02/02/24 00:41: Activated Clotting Time 152 H 02/02/24 01:17: Activated Clotting Time 214 H 02/02/24 01:36: Activated Clotting Time 250 H Rhythm Strip Rhythm Strip: Sinus Rhythm Cardiology Labs/Tests Rhythm: EKG: ECHO: Stress Test: Cardiac Cath: PCI: CT Surgery: Holter monitor: EPS: PPM: CXR: Chest CT Scan: Radiography Diagnostic Testing: Radiology Impression Echocardiogram 02/02/24 01:54 Interpretation Summary The left ventricular ejection fraction is 55 %. Inferior hypokinesis. Thickened papillary muscles. The study was technically difficult. Ordering Physician: Jael Wienberg Referring Physician: Hill Gan Performed By: Zully Alvarado, SUSANNE, RVT Physical Exam Narrative Comfortable. No distress. Heart sounds 1 and 2 are normal. No murmurs or rubs are noted. Chest clear to auscultation bilaterally. Alert oriented x 3. No ankle edema. Assessment & Plan Assessment/Plan (1) ST elevation (STEMI) myocardial infarction: QUALIFIERS: Involved coronary artery: other inferior wall coronary artery Qualified Code(s): I21.19 - ST elevation (STEMI) myocardial infarction involving other coronary artery of inferior wall PLAN: Status post drug-eluting stents to the distal RCA. Continue aspirin lifel noemi. Ticagrelor for at least 1 year. (2) Coronary artery disease: PLAN: See #1 above. Patient was also noted to have about 90% lesion in the proximal left circumflex. This was successfully treated using a 3.0 x 30 mm drug-eluting stent. Aspirin, ticagrelor. Beta-blockers. Statins. Lose weight. (3) Dyslipidemia: PLAN: Atorvastatin. (4) Hypertension: PLAN: Carvedilol, lisinopril. (5) Obesity (BMI 30-39.9): PLAN: Lose weight. 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 Workup revealed positive SCN5a mutation. Subsequently the patient and his father also tested positive for the same gene mutation. No history of sudden cardiac . No history of arrhythmias. PLAN: Plan Okay to discharge home today. Follow-up in the office in 2 to 4 weeks.
[2024-02-03 09:58] VITALS: BP 133/82; PULSE 63; RESP 16; TEMP 36.7; O2SAT 99
[2024-02-03] MEDS: Carvedilol 3.125 MG TABLET PO (10:05)
[2024-02-03] MEDS: Lisinopril 5 MG Tablet PO (10:05)
[2024-02-03] MEDS: Aspirin E.C. 81 MG Tablet PO (10:05)
[2024-02-03] MEDS: TICAGRELOR 90 MG TABLET PO (10:05)
[2024-02-03] MEDS: Enoxaparin 40 MG/0.4 ML Syringe SC (10:06)
--- NOTE | 2024-02-03 12:12 | DS.PCM_ITS ---
Providers Date of Admission: 02/02/24 Primary Care Physician: Dr. Hill Gan MD Reason For Visit: STEMI Diagnosis Discharge Diagnosis (1) ST elevation (STEMI) myocardial infarction: Status: Acute Code(s): I21.3 - ST elevation (STEMI) myocardial infarction of unspecified site Qualifiers: Involved coronary artery: other inferior wall coronary artery Qualified Code(s): I21.19 - ST elevation (STEMI) myocardial infarction involving other coronary artery of inferior wall (2) Coronary artery disease: Status: Acute Code(s): I25.10 - Atherosclerotic heart disease of [place] coronary artery without angina pectoris (3) Dyslipidemia: Status: Acute Code(s): E78.5 - Hyperlipidemia, unspecified (4) Obesity (BMI 30-39.9): Status: Acute Code(s): E66.9 - Obesity, unspecified (5) Monoallelic mutation of SCN5A gene: Status: Acute Code(s): Z15.89 - Genetic susceptibility to other disease Plan STEMI: * s/p JIMENA x 2 to distal RCA and 1 JIMENA to proximal LCX * Echo shows an EF 55% with inferior hypokinesis. * Continue with ASA, ticagrelor, carvedilol, lisinopril, atorvastatin * Follow up with cardiology. Pt advised on the importance of compliance with medications. Chronic conditions: * Obesity; with BMI of 37.1 * History of hyperlipidemia and hypertriglyceridemia compounding statin and check lipid profile in AM. VTE prophylaxis: LMWH. . Medications at Discharge Home Medications aspirin 81 mg tablet,delayed release 81 mg PO DAILY@0800 #30 tabs 02/03/24 atorvastatin 80 mg tablet 80 mg PO QHS #30 tabs 02/03/24 carvedilol 3.125 mg tablet 3.125 mg PO BID #60 tabs 02/03/24 lisinopril 5 mg tablet 5 mg PO DAILY #30 tabs 02/03/24 nitroglycerin 0.4 mg sublingual tablet 0.4 mg sublingual Q5M PRN Cardiac/Chest P ain #10 tabs 02/03/24 ticagrelor 90 mg tablet (Brilinta) 90 mg PO BID #60 tabs 02/03/24 Hospital Course Operations None Procedures None, 2-D Echocardiogram and Cardiac catheterization Summary of Care Provided Minutes Spent on Discharge: 36 Hospital Course: Patient presents with chest pain. Patient was found for an ST elevation myoc ardial infarction. Patient had drooling since x 2 placed to the RCA and 1 to the proximal left circumflex. Echocardiogram showed EF of 55%. Patient will be discharged with aspirin, ticagrelor, carvedilol, lisinopril and atorvastatin. Physical Exam Const alert and no apparent distress HEENT normocephalic and head/scalp atraumatic Resp normal respiratory effort, no retractions, no use of accessory muscles and clear to auscultation bilaterally Cardio regular rate, regular rhythm, S1 normal heart sound and S2 normal heart sound Weight / BMI Weight Weight: 131.6 kg Body Mass Index (BMI) 37.2 ABG / Lab / Microbiology Data 02/02/24 02:55 02/02/24 02:55 Laboratory: Laboratory Results - last 24 hr 02/02/24 00:41: Activated Clotting Time 152 H 02/02/24 01:17: Activated Clotting Time 214 H 02/02/24 01:36: Activated Clotting Time 250 H D/C Instructions Discharge Diet: Low fat / Low cholesterol Meaningful Use Info Meaningful Use Meaningful Use Diagnoses (Choose all that apply): AMI AMI/Post PCI/Angioplasty Aspirin given w/in 24hrs of arrival?: Yes ASA at discharge?: Yes Antiplatelet Therapy at Discharge:: Yes Statins at discharge?: Yes Stevie/ARB at discharge?: Yes Beta Yasmin at discharge?: Yes Done w/ Acute [place] measure.: Yes Documented LVEF (%): 55 Ischemic Stroke Statin Dosing Therapy Reference: STATIN DOSE THERAPY REFERENCE: * Patients > 75 years receive moderate or high dose statin therapy. * Patients 75 years or YOUNGER should receive HIGH intensity statin dose unless contraindicated. You will be required to document reason for non-treatment if statin daily dose does not meet guidelines. HIGH DOSE STATIN THERAPY DAILY Atorvastatin > than or = to 40 mg Rosuvastatin > than or = to 20 mg Amlodipine + Atorvastatin > than or = to 2.5/40 mg Ezetimibe + Simvastatin 10/80 mg Simvastatin 80mg Discharge Plan Admission Admit Date/Time: 02/02/24 08:45 Primary Reason for Your Visit: STEMI. Attending Provider: Carmelo Hartman Primary Care Provider: Hill Gan Consulting Providers: Jael Weinberg Instructions Additional Instructions / Restrictions: You had a myocardial infarction. You had stents placed in 2 vessels. For important to be compliant with her medications to prevent recurrent heart attack. Please follow-up with cardiology for follow-up. If you have recurrent chest pain, shortness of breath, notify your physician's or return to the emergency room. Discharge Orders/Prescriptions Prescriptions: New aspirin 81 mg Tablet,Delayed Release (Dr/Ec) 81 mg PO DAILY@0800 Qty: 30 0RF atorvastatin 80 mg Tablet 80 mg PO QHS Qty: 30 0RF carvedilol 3.125 mg Tablet 3.125 mg PO BID Qty: 60 0RF nitroglycerin 0.4 mg Tablet, Sublingual 0.4 mg sublingual Q5M PRN (Reason: Cardiac/Chest Pain) Qty: 10 0RF lisinopril 5 mg Tablet 5 mg PO DAILY Qty: 30 0RF Brilinta 90 mg Tablet 90 mg PO BID Qty: 60 0RF Discontinued tadalafil [Cialis] 5 mg tablet 10 mg PO DAILY PRN (Reason: sexual activity) Rx Instructions: administer approximately 30min before sexual activity; do not use more than 1 dose per 24hrs Referrals / Follow Up: [facility] [Provider Group] - Within 1 Month Hill Gan MD [Primary Care Provider] - Within 2 Weeks Disposition Disposition (needs filled in before D/C Order can be placed): Home, Self Care Charges/Coding Visit Charges Inpatient E&M: 42113 Disch Hosp >30min
--- NOTE | 2024-02-03 13:17 | CASEMGMT ---
Patient has order for discharge. Patient discharging on Brilinta, JEOVANNY CM called [facility] and verified copay of $20. RN CM in to discuss needs at discharge. Patient denies needs or help at discharge. RN CM provided patient with $5 copay Brilinta Savings card. Patient had no further questions or concerns.
[2024-02-03 13:25] VITALS: BP 142/94; PULSE 68; RESP 18; TEMP 36.9; O2SAT 97
--- NOTE | 2024-02-13 11:14 | ECQM.STEMI ---
STEMI STEMI ED Door Time / Other REG STEMI EKG Time (1) Stented coronary artery: Acute ~02/02/24 23:35 Balloon/Aspiration Date-Time Date of Balloon/Aspiration:: 02/03/24 Time of Balloon/Aspiration:: 00:49
== END 2024-02-03 13:41 | disposition home or self-care (01) | DRG 322 ==
LOC: ED 02-02 00:03 → ICU 02-02 07:10 → PCU 02-02 21:52
PROVIDERS: Admitting Provider Internal Medicine Cardiovascular Disease; Emergency Provider Emergency Medicine; PCP Family Medicine; Referring Provider Internal Medicine Cardiovascular Disease
DX: I21.19 ST elevation (STEMI) myocardial infarction involving other coronary artery of inferior wall (principal); E66.9 Obesity, unspecified; I10 Essential (primary) hypertension; E78.5 Hyperlipidemia, unspecified; I25.10 Atherosclerotic heart disease of native coronary artery without angina pectoris; F17.210 Nicotine dependence, cigarettes, uncomplicated; E78.1 Pure hyperglyceridemia; I49.8 Other specified cardiac arrhythmias; Z68.37 Body mass index [BMI] 37.0-37.9, adult; N52.9 Male erectile dysfunction, unspecified; Z14.8 Genetic carrier of other disease
CPT/HCPCS: 71045; 80048; 80053; 80061; 84484; 85025; 85027; 85347; 85610; 85730; 92928; 92941; 93005; 93306; 93454; 99152; 99153; 99284; J7030; J7040; Q9957; Q9967; A4216; C1725; C1769; C1874; C1887; C1894; C8929; C9600; C9606; J2405

== ENCOUNTER → 2024-03-12 | Outpatient (CLI) | payer OTHER, SELFPAY | END | disposition home or self-care (01) | LOC: SL 20:21 | PROVIDERS: PCP Family Medicine; Referring Provider Physician Assistant Medical; Visit Provider Physician Assistant Medical | DX: I21.19 ST elevation (STEMI) myocardial infarction involving other coronary artery of inferior wall (principal); G47.33 Obstructive sleep apnea (adult) (pediatric) | CPT/HCPCS: 95811 ==

== ENCOUNTER → 2024-04-11 | Outpatient (CLI) | payer OTHER, SELFPAY | END | disposition home or self-care (01) | LOC: SL 09:02 | PROVIDERS: PCP Family Medicine; Visit Provider Physician Assistant Medical | DX: Z00.00 Encounter for general adult medical examination without abnormal findings (principal) ==

== ENCOUNTER → 2024-05-18 | Outpatient (CLI) | payer OTHER, SELFPAY ==
[2024-05-18 09:12] LABS: AST(SGOT) 27 U/L (15-37); Alanine Aminotransfer ALT/SGPT 45 U/L (16-61); Albumin, Serum 4.1 g/dL (3.2-5.0); Alkaline Phosphatase 46 U/L (45-117); Bilirubin, Direct 0.37 mg/dL (0.00-0.30); Cholesterol 103 mg/dL (200); Globulin 3.2 g/dL (2.2-4.2); High Density Lipoprotein 36 mg/dL; Protein, Total 7.3 g/dL (6.4-8.2); Triglycerides 83 mg/dL; Very Low Density Lipoprotein 17 mg/dL (5-40)
== END | disposition home or self-care (01) ==
LOC: LAB 08:04
PROVIDERS: PCP Family Medicine; Referring Provider Physician Assistant Medical; Visit Provider Physician Assistant Medical
DX: I21.19 ST elevation (STEMI) myocardial infarction involving other coronary artery of inferior wall (principal); G47.33 Obstructive sleep apnea (adult) (pediatric)
CPT/HCPCS: 36415; 80061; 80076

== ENCOUNTER → 2024-06-21 | Outpatient (CLI) | payer OTHER, SELFPAY | END | disposition home or self-care (01) | LOC: SL 08:28 | PROVIDERS: PCP Family Medicine; Referring Provider Nurse Practitioner Acute Care; Visit Provider Nurse Practitioner Acute Care | DX: G47.33 Obstructive sleep apnea (adult) (pediatric) (principal) | CPT/HCPCS: 98960; G0463 ==

== ENCOUNTER 2024-07-14 13:16 | Emergency (ER) | payer OTHER, SELFPAY ==
[2024-07-14 13:17] VITALS: BP 129/81; PULSE 55; RESP 20; TEMP 36.6; O2SAT 100
[2024-07-14 13:30] VITALS: PULSE 48; RESP 18
--- NOTE | 2024-07-14 13:38 | CT_ITS ---
EXAMINATION : Head CT w/out contrast HISTORY : Trauma COMPARISON : None. TECHNIQUE : Multiple contiguous axial images were obtained from the skull base to the vertex without intravenous contrast. A radiation dose optimization technique was used for this scan. FINDINGS : There is a 1 cm thick mixed density extra-axial fluid collection along the right hemispheric convexity extending medially to involve the anterior and posterior falx. There is right to left subfalcine herniation of 1 cm. There is partial effacement of the suprasellar cistern. There is normal frances-white differentiation, without CT evidence of acute ischemia or infarct. The skull base and calvarium are unremarkable. The orbits are unremarkable. The paranasal sinuses are clear. The mastoid air cells are well-aerated. The soft tissues are unremarkable. CT/Brain/Head without Contrast IMPRESSION: 1 cm thick acute on chronic right hemispheric subdural hematoma extending into the anterior and posterior parafalcine areas. Associated right to left subfalcine herniation of 1 cm and possible early bilateral uncal herniation. N.B. : The above Results were Read Back by Chay Robledo MD to Jaiden Desouza DO, and understanding confirmed on 07/14/2024 14:36:43 (ET). Electronically Signed: Chay Robledo MD at 14:30 EDT ,
[2024-07-14 13:48] VITALS: BP 145/79; PULSE 56; O2SAT 100
[2024-07-14 13:49] LABS: Absolute Lymphocyte Count 5.12 X10^3/uL (0.83-4.51); Absolute Neutrophil Count 5.2 X10^3/uL (2.0-7.7); Basophil# 0.08 X10^3/uL; Basophil% 0.7 % (0-1); Eosinophils% 2.6 % (0-5); Hematocrit 41.7 % (40-54); Lymphocyte # 5.12 X10^3/ul (0.83-4.51); Lymphocyte % 44.4 % (19-41); Mean Corp Hgb Conc 33.6 g/dL (32-36); Mean Corpuscular Hgb 27.7 pg (27.0-32.0); Mean Corpuscular Volume 82.6 fL (80-94); Mean Platelet Vol. 10.5 fl (6.2-12.0); Monocyte# 0.82 X10^3/uL; Monocyte% 7.1 % (0-10); NRBC Flagged by Analyzer 0 % (0-5); POSITIVE DIFFERENTIAL YES; Platelet Count 295 K/mm3 (150-450); RBC Distribution Width CV 12.7 % (11.6-14.6); RBC Distribution Width SD 38.5 fl (35.1-43.9); Red Blood Count 5.05 M/mm3 (4.6-6.2); White Blood Count 11.5 K/mm3 (4.4-11.0)
--- NOTE | 2024-07-14 13:55 | ED.RN ---
per dr. orlando verbal order, hang 3% hypertonic solution at 999ml/hr for 250mL bolus
[2024-07-14 13:59] VITALS: BMI 32.1
[2024-07-14] MEDS: Propofol 10MG/Ml 1,000 MG/100 ML Bottle 6.8 MG CONT INF (14:02)
[2024-07-14 14:03] LABS: Anion Gap 5 (5-15); BUN 16 mg/dL (7-18); BUN/Creat Ratio 15.7 RATIO (10-20); Calcium,Total 8.8 mg/dL (8.5-10.1); Chloride 112 mmol/L (98-107); Creatinine, Serum 1.02 mg/dL (0.70-1.30); EST Glomerular Filtration Rate 85 mL/min (>60); Est Glom Filt Rate - Afr Amer 103 mL/min (>60); Estimated Creatinine Clearance 126.34 ml/min; Glucose 117 mg/dL (74-106); Potassium 3.8 mmol/L (3.5-5.1); Sodium Level 141 mmol/L (136-145)
[2024-07-14] MEDS: Sodium Cl 3% 500 ML 250 ML IV (14:03)
--- NOTE | 2024-07-14 14:10 | RAD_ITS ---
ACR Level 3 findings have been noted. An addendum which confirms receipt of the report will follow. INDICATION: ETT PLACEMENT EXAMINATION/TECHNIQUE: X-RAY - XR Chest 1 View COMPARISON: 02/02/2024. FINDINGS: Likely left basilar contusion versus atelectasis. The cardiomediastinal silhouette is unremarkable. Interval placement of endotracheal tube with tip 6.2 cm above the karlene. Interval placement of NG tube with tip in the stomach. No pleural effusion or pneumothorax. Questionable nondisplaced left posterior ninth rib fracture. RAD/Chest 1 View (Portable) IMPRESSION: Interval placement of endotracheal tube with tip 6.2 cm above the karlene. Recommend advancement by at least 1 cm. Interval placement of NG tube with tip in the stomach. Questionable nondisplaced left posterior ninth rib fracture. Recommend rib series radiographs or chest CT. Likely left basilar contusion versus atelectasis. Electronically Signed: Chay Robledo MD at 15:33 EDT ,
[2024-07-14 14:11] LABS: Red Blood Cells-Urine 0 SEEN /hpf (0-5)
[2024-07-14] MEDS: fentaNYL 100 MCG/2 ML Ampul 50 MCG IV (14:12)
[2024-07-14] MEDS: Ondansetron 4 MG/2 ML Vial IV (14:13)
[2024-07-14] MEDS: 0.9% Normal Saline (1000mL) 1,000 ML 999 ML IV (14:13)
[2024-07-14 14:19] LABS: Prothrombin Time (Protime)PT. 13.6 SECONDS (11.7-14.9)
[2024-07-14 14:20] LABS: Color, Urine Yellow (Yellow); Glucose, Dipstick Normal (Normal); Ketone-Dipstick Negative (Negative); Leukocyte Esterase-Dipstick 25 /ul (Negative); Nitrite-Dipstick Negative (Negative); Occult Blood-Urine Negative /ul (Negative); Protein-Dipstick 15 mg/dl (Negative); Specific Gravity, Urine 1.025 (1.002-1.030); Urine Bilirubin Dipstick Negative (Negative); Urine Clarity Clear (Clear); Urine Urobilinogen 1 mg/dl (Normal)
[2024-07-14 14:20] LABS: Partial Thromboplast Time 26.3 Seconds (24.1-36.2)
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
[2024-07-14 14:23] LABS: Alcohol, Blood (Medical)-Serum < 3.0 mg/dL
[2024-07-14 14:30] VITALS: BP 145/88; PULSE 51; RESP 16; TEMP 36.6; O2SAT 100
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
[2024-07-14 14:38] VITALS: O2SAT 100
[2024-07-14 14:41] LABS: Mucous, Urine 1+ /hpf (<or=2+); Squamous Epithelial Cells - UA 0-5 SEEN /hpf (0-5)
[2024-07-14 14:42] LABS: Bacteria RARE /hpf (None Seen); White Blood Cells 0-5 SEEN /hpf (0-5)
--- NOTE | 2024-07-14 14:44 | ED.RN ---
all of pt belongings were given to . flight crew took cardene, 3% sodium chloride, and txa. per flight crew the medications will continue in transit.
[2024-07-14] MEDS: TRANEXAMIC ACID 1,000 MG in 0.9% Normal Saline (100mL Bag) 100 ML 440 MG IV (14:49)
[2024-07-14] MEDS: Atropine Sulfate 1 MG/10 ML Syringe IV (14:49)
[2024-07-14 14:50] LABS: Amphetamine Urine VISTA NEGATIVE (<1000 ng/mL); Barbiturate Urine VISTA NEGATIVE (< 200 ng/mL); Benzodiazepine Urine VISTA NEGATIVE (< 200 ng/mL); Cocaine Urine VISTA NEGATIVE (< 300 ng/mL); Ecstacy Urine VISTA NEGATIVE (< 500 ng/mL); Methadone Urine VISTA NEGATIVE (< 300 ng/mL); PCP Urine VISTA NEGATIVE (< 25 ng/mL); THC Urine VISTA POSITIVE (< 50 ng/mL); Vista UDS pH Range 4
[2024-07-14] MEDS: Rocuronium Bromide 50 MG/5 ML Vial 20 MG IV (14:50)
[2024-07-14] MEDS: Etomidate 20 MG/10 ML Vial IV (14:50)
[2024-07-14] MEDS: Rocuronium Bromide 50 MG/5 ML Vial 100 MG IV (14:51)
== END 2024-07-14 15:06 | disposition short-term general hospital (02) ==
PROVIDERS: Emergency Provider Surgery; PCP Family Medicine; Referring Provider Surgery; Visit Provider Surgery
DX: S06.5X0A Traumatic subdural hemorrhage without loss of consciousness, initial encounter (principal); S06.A1XA Traumatic brain compression with herniation, initial encounter; E78.5 Hyperlipidemia, unspecified; I10 Essential (primary) hypertension; I25.10 Atherosclerotic heart disease of native coronary artery without angina pectoris; Z87.891 Personal history of nicotine dependence; Z79.02 Long term (current) use of antithrombotics/antiplatelets; I25.2 Old myocardial infarction; V86.39XA Unspecified occupant of other special all-terrain or other off-road motor vehicle injured in traffic accident, initial encounter
CPT/HCPCS: 31500; 70450; 71045; 80048; 80307; 81001; 82077; 85025; 85610; 85730; 86850; 86900; 86901; 96361; 96374; 96375; 99252; 99285; A4216; G0463; J2405

== ENCOUNTER 2024-07-22 09:05 | Emergency (ER) | payer OTHER, SELFPAY ==
[2024-07-22] VITALS (7 sets, daily range): BP systolic 139–149; BP diastolic 80–93; PULSE 40–51; RESP 11–18; TEMP 36.4–36.9; O2SAT 98–100; BMI 31.0
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
[2024-07-22] MEDS: HYDROcodone Bitartrate/Apap 5/325 Tablet PO (09:56)
--- OUTSIDE RECORDS SUMMARY | 2024-07-22 10:05 | XMS RPT_ITS | CCD ---
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 at the superior aspect of sternoclavicular joint. Left costophrenic angle curvilinear opacities likely representing atelectasis. [facility] Radiology Study observation (narrative) [facility] Chest Single viewOrdered By: Elmer Saab on 07-14-2024 [facility] Work Phone: Provider Note - ED v3on Provider Note - ED v3 Provider Note: Chart Review: HISTORY OF PRESENTING ILLNESS CURTIS is a 42 year old Male and was seen by me at 01-Apr-2022 14:22. Triage Information: Most recent Vital Sign Value Date PAST MEDICAL HISTORY ALLERGIES/INTOLERANCE S: No documented data. HEALTH HISTORY: No documented data. OUTPATIENT MEDICATIONS: Home Medications Review Status for Reconciliation: N/A Med Status: N/A No documented data. 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 Symptoms include see ROS Negative for see ROS.. Patient cleaned area with an antiseptic wipe. Patient is not worried about rabies at this time. REVIEW OF SYSTEMS (-)=Denies (+)=Complains of General: (-)Fatigue, (-)Fever, and (-)Chills. Skin: (+ knee left) abrasion , (-) puncture, (-) peeling skin, (+ some bleeding that has stopped) drainage, (+around area) redness, Vision:(-) Eye pain, Ears: (-) Pain, ( Pulmonary: (-) Cough, (-) Dyspnea, (-) Wheezing. Cardiovascular: (-) Chest pain, (-) Edema. Gastrointestinal: (-) Nausea, (-) Vomiting, (-) Diarrhea, (-) Abdominal Pain. PHYSICAL EXAM Patient in seated position. Appearance well groomed, alert and orientated, no acute distress, speech clear, and evenly paced, good historian, cooperative. Head: Normocephalic. Skin: Inspection: 3x4.5 abrasion noted to the left knee, no discharge, no bleeding, Cardiac: Regular S1 S2 no murmur, gallop/rub noted Lungs: Inspection +symmetric expansion, Patient sitting , respirations full, easy, and unlabored, skin color appropriate for ethnicity, pink, no cyanosis, or lesions noted. Auscultation Clear to auscultation bilaterally all vesicular tracy. Tracheal/bronchial- loud high pitch. Bronchovesicular moderate pitch. Diagnostic: none today Plan: Updated Tdap today Edcuatd on Wound care Call in1-2 days to schedule follow up with Occupational Health Discussed concerns for rabies today, patient is not concerned at this time Patient Education and Follow up: Patient educated on plan above. Pt verbalized understanding; written instructions also provided. Reviewed red flags, counseled on potential adverse reactions of treatments, expectations for improvement in sxs, and advised to follow-up with primary care provider in 3-5 days if symptoms persist, or to ER sooner if worsening or if any additional concerns/red flags develop. Patient agreed with plan of care; questions were encouraged and answered. DISPOSITION Diagnosis/Annotation: ED Dx Name:Dog bite Code:W54.0XXA Disposition: discharged Type: home CONSULT CRITICAL CARE TIME Is this a critically ill patient: no Electronic Signatures: Geena Brooks (WET MACHINE OPERATOR-FLIGHT COMMUNICATIONS OFFICER) (Signed 01-Apr-2022 14:34) Authored: HPI, PMH, PE, MDM/ED Course, Clinical Impression, Attestation, Chart Review, Scores Last Updated: 01-Apr-2022 14:34 by Geena Brooks (WET MACHINE OPERATOR-FLIGHT COMMUNICATIONS OFFICER) [facility] NOVEL CORONAVIRUS NASOPHARYN GEAL - [facility] SPECIMEN ONLYon 09-08-2020 SARS-COV-2 NOT DETECTED Normal NOT DETECTED [facility] Comment on above: Order Comment: Submi tter Name: COUNTRY POINTE Agent Suspected: SARS-COV-2 This test was performed using real time PCR and has been approved for the qualitative detection of SARS-CoV-2 nucleic acid. The test has been authorized by the FDA under an emergency use authorization for use by authorized laboratories. Result Comment: Nega tive results do not preclude SARS-CoV-2 infection and should not be used as the sole basis for treatment or other patient management decisions. Optimum specimen types and timing for peak viral levels during infections caused by SARS-CoV-2 has not been determined. The possibility of a false negative result should especially be considered if the patient's recent exposures or clinical presentation suggest that SARS-CoV-2 infection is probable, and diagnostic tests for other causes of illness (e.g., other respiratory illness) are negative. Collection of a new specimen and re-testing may be necessary if the patient is critically ill or clinically deteriorating. Performed By: #### L [id number] #### [facility] (DEFAULT) [address] [place] [address] NOVEL CORONAVIRUS NASOPHARYN GEAL - [facility] SPECIMEN ONLYon 08-25-2020 SARS-COV-2 NOT DETECTED Normal NOT DETECTED [facility] Comment on above: Order Comment: Submi tter Name: COUNTRY POINTE Agent Suspected: SARS-COV-2 This test was performed using real time PCR and has been approved for the qualitative detection of SARS-CoV-2 nucleic acid. The test has been authorized by the FDA under an emergency use authorization for use by authorized laboratories. Result Comment: Nega tive results do not preclude SARS-CoV-2 infection and should not be used as the sole basis for treatment or other patient management decisions. Optimum specimen types and timing for peak viral levels during infections caused by SARS-CoV-2 has not been determined. The possibility of a false negative result should especially be considered if the patient's recent exposures or clinical presentation suggest that SARS-CoV-2 infection is probable, and diagnostic tests for other causes of illness (e.g., other respiratory illness) are negative. Collection of a new specimen and re-testing may be necessary if the patient is critically ill or clinically deteriorating. Performed By: #### L [id number] #### [facility] (DEFAULT) [address] [address] NOVEL CORONAVIRUS NASOPHARYN GEAL - [facility] SPECIMEN ONLYon 07-28-2020 SARS-COV-2 NOT DETECTED Normal NOT DETECTED [facility] Comment on above: Order Comment: Submi tter Name: COUNTRY POINTE Agent Suspected: SARS-COV-2 This test was performed using real time PCR and has been approved for the qualitative detection of SARS-CoV-2 nucleic acid. The test has been authorized by the FDA under an emergency use authorization for use by authorized laboratories. Result Comment: Nega tive results do not preclude SARS-CoV-2 infection and should not be used as the sole basis for treatment or other patient management decisions. Optimum specimen types and timing for peak viral levels during infections caused by SARS-CoV-2 has not been determined. The possibility of a false negative result should especially be considered if the patient's recent exposures or clinical presentation suggest that SARS-CoV-2 infection is probable, and diagnostic tests for other causes of illness (e.g., other respiratory illness) are negative. Collection of a new specimen and re-testing may be necessary if the patient is critically ill or clinically deteriorating. Performed By: #### L [id number] #### [facility] (DEFAULT) [address] [address] NOVEL CORONAVIRUS NASOPHARYN GEAL - [facility] SPECIMEN ONLYon 06-30-2020 SARS-COV-2 NOT DETECTED Normal NOT DETECTED [facility] Comment on above: Order Comment: Submi tter Name: COUNTRY POINTE Agent Suspected: SARS-COV-2 This test was performed using real time PCR and has been approved for the qualitative detection of SARS-CoV-2 nucleic acid. The test has been authorized by the FDA under an emergency use authorization for use by authorized laboratories. Result Comment: Nega tive results do not preclude SARS-CoV-2 infection and should not be used as the sole basis for treatment or other patient management decisions. Optimum specimen types and timing for peak viral levels during infections caused by SARS-CoV-2 has not been determined. The possibility of a false negative result should especially be considered if the patient's recent exposures or clinical presentation suggest that SARS-CoV-2 infection is probable, and diagnostic tests for other causes of illness (e.g., other respiratory illness) are negative. Collection of a new specimen and re-testing may be necessary if the patient is critically ill or clinically deteriorating. Performed By: #### L [id number] #### [facility] ([facility]) [address] [place] [address] Testosteroneon 06-04-2020 Testosterone [Mass/Vol] 198 ng/dL Normal 193-824 [facility] Comment on above: Performed By: #### T ESTO #### [facility] [address] [place], [place] [address] Vitamin D 25 Hydroxyon 05-12 Vitamin D 25 Hydroxy 35.1 ng/mL Normal 31.0-80.0 [facility] Reference [facility] Comment on above: Performed By: #### B MP, LIPB, TESTO, TSH, VITD #### [facility] [address] [place], [place] [address] Basic Metabolic Panlon 05-11 Anion gap [Moles/Vol] 12 mmol/L Normal 9-18 [facility] Comment on above: Performed By: #### B MP, LIPB, TESTO, TSH, VITD #### [facility] [address] [place], [place] [address] Calcium [Mass/Vol] 9.5 mg/dL Normal 8.5-10.2 [facility] Reference [facility] Comment on above: Performed By: #### B MP, LIPB, TESTO, TSH, VITD #### [facility] [address] [place], [place] [address] Chloride [Moles/Vol] 102 mmol/L Normal 97-105 [facility] Reference [facility] Comment on above: Performed By: #### B MP, LIPB, TESTO, TSH, VITD #### [facility] [address] [place], [place] [address] CO2 [Moles/Vol] 25 mmol/L Normal 22-30 [facility] Comment on above: Performed By: #### B MP, LIPB, TESTO, TSH, VITD #### [facility] Routine Lab [address] [place], [place] [address] Creatinine [Mass/Vol] 0.98 mg/dL Normal 0.73-1.22 [facility] Comment on above: Performed By: #### B MP, LIPB, TESTO, TSH, VITD #### [facility] [address] [place] [address] eGFR- Amer. >60 Normal [facility] Reference [facility] Comment on above: Performed By: #### B MP, LIPB, TESTO, TSH, VITD #### [facility] [address] [place] [id number] GFR/1.73 sq M predicted among non-blacks MDRD (S/P/Bld) [Vol rate/Area] mL/min/{1.73_m2} Normal [facility] Comment on above: Performed By: #### B MP, LIPB, TESTO, TSH, VITD #### [facility] [address] [place], [place] [address] Glucose [Mass/Vol] 102 mg/dL High 74-99 [facility] Comment on above: Performed By: #### B MP, LIPB, TESTO, TSH, VITD #### [facility] [address] [place], [place] [address] Potassium [Moles/Vol] 4.5 mmol/L Normal 3.7-5.1 [facility] Comment on above: Performed By: #### B MP, LIPB, TESTO, TSH, VITD #### [facility] [address] [place] [address] Sodium [Moles/Vol] 139 mmol/L Normal 136-144 [facility] Comment on above: Performed By: #### B MP, LIPB, TESTO, TSH, VITD #### [facility] [address] [place], [place] [address] Urea nitrogen [Mass/Vol] 15 mg/dL Normal 9-24 [facility] Comment on above: Performed By: #### B MP, LIPB, TESTO, TSH, VITD #### [facility] [address] [place], [place] [address] Lipid Panel, [place] 020 Cholesterol [Mass/Vol] 206 mg/dL High <200 [facility] Comment on above: Performed By: #### B MP, LIPB, TESTO, TSH, VITD #### [facility] [address] [place], [place] [address] Cholesterol in HDL [Mass/Vol] 25 mg/dL Low >39 [facility] Comment on above: Performed By: #### B MP, LIPB, TESTO, TSH, VITD #### [facility] [address] [place], [place] [address] Cholesterol in LDL [Mass/Vol] 119 mg/dL High <100 [facility] Comment on above: Performed By: #### B MP, LIPB, TESTO, TSH, VITD #### [facility] [address] [place], [place] [address] Cholesterol in VLDL [Mass/Vol] 62 mg/dL High <30 [facility] Comment on above: Performed By: #### B MP, LIPB, TESTO, TSH, VITD #### [facility] [address] [place], [place] [address] Cholesterol non HDL [Mass/Vol] 181 mg/dL High <130 [facility] Comment on above: Performed By: #### B MP, LIPB, TESTO, TSH, VITD #### [facility] [address] [place], [place] [address] LDL:HDL Ratio 4.76 High <2.54 [facility] Comment on above: Performed By: #### B MP, LIPB, TESTO, TSH, VITD #### [facility] [address] [place] [address] TC:HDL Ratio 8.24 High <5.10 [facility] Comment on above: Performed By: #### B MP, LIPB, TESTO, TSH, VITD #### [facility] Lab [address] [place] [address] Triglyceride [Mass/Vol] 311 mg/dL High <150 [facility] Comment on above: Performed By: #### B MP, LIPB, TESTO, TSH, VITD #### [facility] [address] [place] [phone] Fasting Time UN Normal [facility] Comment on above: Performed By: #### B MP, LIPB, TESTO, TSH, VITD #### [facility] [address] [place] [phone] TSHon 05-11-2020 TSH Qn 1.240 uU/mL Normal 0.270-4.200 [facility] Comment on above: Performed By: #### B MP, LIPB, TESTO, TSH, VITD #### [facility] [address] [place] [phone] Testosteroneon 05-11-2020 Testosterone [Mass/Vol] 142 ng/dL Low 193-824 [facility] Comment on above: Performed By: #### B MP, LIPB, TESTO, TSH, VITD #### [facility] Lab [address] [place] [address] NOVEL CORONAVIRUS NASOPHARYN GEAL - [facility] SPECIMEN ONLYon 05-05-2020 SARS-COV-2 NOT DETECTED Normal NOT DETECTED [facility] Comment on above: Order Comment: Submi tter Name: CHRISTEL MUNIZ Agent Suspected: SARS-COV-2 This test was performed using real time PCR and has been approved for the qualitative detection of SARS-CoV-2 nucleic acid. The test has been authorized by the FDA under an emergency use authorization for use by authorized laboratories. Result Comment: Nega tive results do not preclude SARS-CoV-2 infection and should not be used as the sole basis for treatment or other patient management decisions. Optimum specimen types and timing for peak viral levels during infections caused by SARS-CoV-2 has not been determined. The possibility of a false negative result should especially be considered if the patient's recent exposures or clinical presentation suggest that SARS-CoV-2 infection is probable, and diagnostic tests for other causes of illness (e.g., other respiratory illness) are negative. Collection of a new specimen and re-testing may be necessary if the patient is critically ill or clinically deteriorating. Performed By: #### L [id number] #### [facility] ([facility]) [address] [place] [address] Vital Signs Date Time Vital Sign Value Performing Clinician Facility 07-16-2024 14:00-0400 Diastolic blood pressure 71 mm[Hg] Shalonda Spink DO Work Phone: [facility] 07-16-2024 14:00-0400 Heart rate 48 /min Shalonda Germán DO Work Phone: [facility] 07-16-2024 14:00-0400 Respiratory rate 14 /min Shalonda Germán DO Work Phone: [facility] 07-16-2024 14:00-0400 SaO2% (BldA) [Mass fraction] 96 % Shalonda Spink DO Work Phone: [facility] 07-16-2024 14:00-0400 Systolic blood pressure 132 mm[Hg] Shalonda Spink DO Work Phone: [facility] 07-16-2024 12:00-0400 Body temperature 98.1 [degF] Shalonda Germán DO Work Phone: [facility] 07-16-2024 11:03-0400 Heart rate 47 /min Shalonda Spink DO Work Phone: [facility] 07-14-2024 18:39-0400 Body height 188 cm Shalonda Germán DO Work Phone: [facility] 07-14-2024 18:39-0400 Body mass index (BMI) [Ratio] 32.1 kg/m2 Shalonda Spink DO Work Phone: [facility] 07-14-2024 18:39-0400 Body weight 113.4 kg Shalonda Spink DO Work Phone: [facility] 04-01-2022 16:21-0400 Body height 185.4 cm [place] Other Phone: [facility] 04-01-2022 16:21-0400 Body temperature 97.88 [degF] [place] Other Phone: [facility] 04-01-2022 16:21-0400 Diastolic blood pressure 99 mm[Hg] [place] Other Phone: [facility] 04-01-2022 16:21-0400 Heart rate 60 /min [place] Other Phone: [facility] 04-01-2022 16:21-0400 SaO2% (BldA) [Mass fraction] 97 % [place] Other Phone: [facility] 04-01-2022 16:21-0400 Systolic blood pressure 154 mm[Hg] [place] Gan Other Phone: [facility] Encounters Encounter Date Encounter Type Care Provider Facility Start: 07-16-2024 End: 07-17-2024 Letter encounter January Fragosocornelio WET MACHINE OPERATOR-FLIGHT COMMUNICATIONS OFFICER Work Phone: [facility] Neurosurgery Comment on above: Refill Start: 07-16-2024 End: 07-16-2024 Evaluation and management of inpatient Shalonda Germán DO Work Phone: [facility] Radiology CT Comment on above: Arrived Start: 07-14-2024 End: 07-14-2024 Evaluation and management of inpatient Shalonda Spink DO Work Phone: [facility] Radiology CT Comment on above: Arrived Start: 07-14-2024 End: 07-16-2024 Evaluation and management of inpatient RAHUL FERNANDEZ Facility:[facility] Start: 07-14-2024 Emergency department patient visit AMY HUERTAFARNAZ Facility:[facility] Start: 07-14-2024 End: 07-16-2024 Evaluation and management of inpatient Shalonda Spink DO Work Phone: [facility] [address] Comment on above: Subdural hematoma (H CC) (Primary Dx); Trauma; Closed head injury, initial encounter; Bradycardia, unspecified; Atrioventricular block, first degree Start: 07-14-2024 End: 07-14-2024 E.D. Visit Prudence Maggie ZARAGOZA [facility] Social W ork Comment on above: Trauma/complex Medic al Situation Start: 07-14-2024 Emergency department patient visit UNKNOWN PROVIDER Facility:[facility] Start: 04-01-2022 End: 04-01-2022 Emergency department patient visit [facility] Procedures Date Procedure Procedure Detail Performing Clinician Start: 07-16-2024 Assay of magnesium Lorn e Strausbaugh DO Work Phone: Start: 07-16-2024 Ct head/brain w/o co ntrast material Gerald Strausbaugh DO Work Phone: Start: 07-15-2024 Glucose blood reagen t strip Kristyn Delgadillo MD Work Phone: Start: 07-15-2024 End: 07-15-2024 Assay of lactate Gerald Strausbaugh DO Work Phone: Start: 07-14-2024 Ct head/brain w/o co ntrast material Gerald Strausbaugh DO Work Phone: Start: 07-14-2024 Ecg routine ecg w/le ast 12 lds trcg only w/o i&r To Be Assigned Start: 07-14-2024 Radiologic exam ches t single view Nan Stoddard DO Work Phone: Start: 07-14-2024 End: 07-14-2024 Platelet transfusion Rahul Fernandez MD Work Phone: Start: 07-14-2024 FFP Provider U nspecified Start: 07-14-2024 PLASMA STATUS Provider Unspecified Start: 07-14-2024 Ct angiography head w/contrast/noncontrast Blas Bennett APRN-AUREA Work Phone: Start: 07-14-2024 Ct cervical spine w/ o contrast material Blas Bennett APRN-AUREA Work Phone: Start: 07-14-2024 Ct thorax w/contrast material Blas Bennett APRN-AUREA Work Phone: Start: 07-14-2024 Intravenous blood transfusion of platelets Rahul Fernandez MD Work Phone: Start: 07-14-2024 PLATELETS STATUS Rahul Fernandez MD Work Phone: Start: 07-14-2024 Radiologic exam ches t single view Blas Bennett APRN-AUREA Work Phone: Start: 07-14-2024 Radiology Comparison study - date and time Melida Vyas PA-C Work Phone: Start: 07-14-2024 End: 07-14-2024 Assay of lactate Blas ALBRECHT UNIT MANAGER RN Work Phone: Start: 07-14-2024 Blood typing, ABO, R ho(D) and RBC antibody screening Blas TERAN Work Phone: Start: 07-14-2024 End: 07-14-2024 Drug screen quantitative alcohols Blas Bennett APRN-AUREA Work Phone: Plan of Treatment Date Care Activity Detail Author Start: 04-01-2032 Tetanus vaccination Tetanus (T d or Tdap) Booster [facility] Start: 02-02-2032 Shingles (RZV) Vacci ne (1 of 2) Shingles (RZV) Vaccine (1 of 2) [facility] Start: 05-18-2029 [facility]id [facility] Start: 07-16-2025 Creatinine measurement Basic Metabol ic Panel [facility] Start: 07-15-2025 Creatinine measurement Basic Metabol ic Panel [facility] Start: 08-02-2024 End: 08-02-2024 Patient encounter procedure [facility] Radiology CT Start: 07-16-2024 End: 07-16-2025 CT Head WO contrast CT HEAD W/O CONTRAST Imaging Routine Subdural hematoma (HCC) Expected: 07/16/2024, Expires: 07/16/2025 [facility] Work Phone: Comment on above: Expected: 07/16/2024 , Expires: 07/16/2025 Start: 05-27-2024 COVID-19 Vaccine ( season) COVID-19 Vaccine ( season) [facility] Start: 05-27-2024 Influenza vaccination Influenza Vacc ine (#1) [facility] Start: 04-01-2022 End: 04-02-2023 Diphtheria - Tetanus - Pertussis (BOOSTRIX) Vaccine 0.5 mL IntraMuscular Once ; DOSE = 0.5 mL IntraMuscular Once Start: 01-Apr-2022 End: 01-Apr-2023 Ordered: 01-Apr-2022 [facility] Start: 2009 HPV Vaccine (optiona l start 27-45 years) HPV Vaccine (optional start 27-45 years) [facility] Start: 2001 Hepatitis A (HAV) Vaccine (optional start 19+ years) Hepatitis A (HAV) Vaccine (optional start 19+ years) [facility] Start: 2001 Hepatitis B vaccination Hepati tis B (HBV) Vaccine (1 of 3 - 19+ 3-dose series) [facility] Start: 02-02-2000 Hepatitis C screening Hepatitis C An tibody [facility] Start: 02-02-2000 Tdap Booster Tdap Booster [facility] Start: 02-02-1988 Pneumococcal vaccination Pneumococcal Vaccine(s) (1 of 2 - PCV) [facility] Immunizations Immunization Date Immunization Notes Care Provider Fa cility 04-01-2022 tetanus toxoid, redu real diphtheria toxoid, and acellular pertussis vaccine, adsorbed (64) [facility] 12-26-2015 hepatitis B vaccine, adult dosage (64) [facility] 09-12-2015 influenza, seasonal, injectable ( 64) [facility] 09-12-2015 influenza virus vacc ine, unspecified formulation (64) [facility] 07-23-2015 hepatitis B vaccine, adult dosage (64) [facility] 06-18-2015 hepatitis B vaccine, adult dosage (64) [facility] 06-18-2015 measles, mumps, rube lla, and varicella virus vaccine (64) [facility] 04-17-2015 tetanus toxoid, redu real diphtheria toxoid, and acellular pertussis vaccine, adsorbed (64) [facility] Payers Date Payer Category Payer Unknown [id number] 2013 Unknown 2013 Unknown [id number] 1980 Unknown [id number] 2.. [id number] 1980 Unknown [id number] 2. [id number] 1982 Unknown [id number] 2. [id number] 1982 Unknown [id number] 2. [id number] 1982 Unknown [id number] 2.16. [id number] 1982 Unknown [id number] 2.16. [id number] 1982 Unknown [id number] 2.16. [id number] 1980 Unknown [id number] 2.16 [id number] Social History Date Type Detail Facility [facility] Tobacco smoking consumption unknown [facility] Start: 07-14-2024 History of Social function [facility] Start: 07-14-2024 [facility] Has the electric, ga s, oil, or water company threatened to shut off services in your home in past 12Mo Patient unable to answer [facility] Start: 1980 Sex assigned at Not on file [facility] Clinical Notes 07-14-2024 to 07-16-2024 Discharge InstructionsMarj Dean OT - 07/16/2024 1:42 PM Marj Morataya OT - 07/16/2024 1:[address] - 07/16/2024 10:29 AM EDT Note Date & Type Note Facility 07-16-2024 Hospital Discharge instructions Liz Ibanez MD - 07/16/2024 2:12 PM EDT The following attachments cannot be sent through Care Everywhere.Subdural hematoma and epidural hematoma (Congolese)Acute Pain Discharge Instructions, Adult (Congolese)Subdural Hematoma Discharge Instructions (Congolese)documented in this encounter [facility] 07-16-2024 Consult note Associated Order (s): IP OCCUPATIONAL THERAPY SERVICE REQUEST TICU OT: OT referral received and medical record reviewed. Per TICU team and PT, patient is functionally independent with no resultant deficits from TBI. Plan for d/c home today with family support. No acute care OT needs have been identified. Will sign off. Marj WHATLEY, OTR/L Secure chat with questions [facility] Work Phone: 07-16-2024 Note TICU OT: OT referral received and medical record reviewed. Per TICU team and PT, patient is functionally independent with no resultant deficits from TBI. Plan for d/c home today with family support. No acute care OT needs have been identified. Will sign off. Marj WHATLEY, OTR/L Secure chat with questions [facility] 07-16-2024 Note DISCHARGE SUMMARY [address] [address] Curtis Mann Date of : 1980 44 year oldmale Attending Rahul Fernandez MD Date of Admission 07/14/2024 Date of Discharge 07/16/24 [facility] DIVISION OF ACUTE CARE SURGERY FINAL DIAGNOSES: Hospital Problems as of 07/16/2024 Subdural hematoma (HCC) PROCEDURES: Endotracheal intubation 07/14/24 DISCHARGE MEDICATIONS: Current Discharge Medication List START taking these medications Details acetaminophen (TYLENOL) 500 MG tablet Take 2 Tablets by mouth every 6 (six) hours. Qty: 30 Tablet, Refills: 0 levetiracetam (KEPPRA) 750 MG tablet Take 1 Tablet by mouth 2 times daily for 10 doses. Qty: 10 Tablet, Refills: 0 CONTINUE these medications which have NOT CHANGED Details atorvastatin (LIPITOR) 80 mg tablet Take 80 mg by mouth at bedtime. CARvedilol (COREG) 3.125 MG tablet Take 3.125 mg by mouth 2 times daily. lisinopril (ZESTRIL) 5 MG tablet Take 5 mg by mouth daily. nitroglycerin (NITROSTAT) 0.[address] 0.4 mg under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 modification) on 07/15/24 at 0900, Until Discontinued 1015 (Given - Provider: Amor Blount RN)1549 (Given - Provider: Amor Blount RN)2042 (Given - Provider: Radha Schultz RN) 0324 (Given - Provider: Radha Schultz RN)0832 (Given - Provider: Heidy Narayanan RN)1500 (Due)2100 (Due) atorvastatin (LIPITOR) tablet 80 mg, Oral, AT BEDTIME, First dose on 07/15/24 at 0100, Until Discontinued 0137 (Given - Provider: Radha Schultz RN)204 (Given - Provider: Radha Schultz RN) 2200 (Due) CARvedilol (COREG) tablet 3.125 mg, Oral, 2 TIMES DAILY, First dose on 07/15/24 at 0100, Until Discontinued 013 (Given - Provider: Radha Schultz RN)1015 (Given - Provider: Amor Blount RN)2042 (Given - Provider: Radha Schultz RN) 0833 (Given - Provider: Heidy Narayanan RN)2100 (Due) chlorhexidine oral care kit with toothette (PERIDEX) solution (CANCELED) 1 mL (1 Applicator), Oral, EVERY 12 HOURS 8 & 8, First dose on 07/14/24 at 2000, Until Discontinued 181 (Given - Provider: Dillan Cheney RN) famotidine (PEPCID) 40 MG/5ML oral suspension (CANCELED) 20 mg, NG Tube, 2 TIMES DAILY, First dose on 07/14/24 at 1847, Until Discontinued 190 (Given - Provider: Dillan Cheney RN) fentaNYL (SUBLIMAZE) 100 MCG/2ML injection (COMPLETED) 100 mcg, Intravenous Push, ONCE, 1 dose, On 07/14/24 at 1607 1521 (Given - Provider: Beverly Goins RN) hydrOXYzine (ATARAX) tablet (COMPLETED) 25 mg, Oral, Once, 1 dose, On 07/16/24 at 0530 0445 (Given - Provider: Radha Schultz RN) ibuprofen (MOTRIN) tablet (COMPLETED) 800 mg, Oral, Once, 1 dose, On 07/16/24 at 0530 0445 (Given - Provider: Radha Schultz RN) iohexol (OMNIPAQUE) 350 MG/ML injection (COMPLETED) 100 mL, Intravenous Push, Once at Radiology exam, 1 dose, Starting on 07/14/24 at 1629, Until 07/14/24 at 1630, Imaging Protocol Orders 1630 (Given - Provider: Rosa Barfield) iohexol (OMNIPAQUE) 350 MG/ML injection (COMPLETED) 75 mL, Intravenous Push, Once at Radiology exam, 1 dose, Starting on 07/14/24 at 1630, Until 07/14/24 at 1630, Imaging Protocol Orders 1630 (Given - Provider: Rosa Barfield) levETIRAcetam (KEPPRA) tablet 750 mg 750 mg, Oral, 2 TIMES DAILY, 14 doses, First dose on 07/15/24 at 0100, Last dose on 07/21/24 at 0900 0135 (Given - Provider: Radha Schultz RN)1015 (Given - Provider: Amor Blount RN)2043 (Given - Provider: Radha Schultz, JEOVANNY) 0834 (Given - Provider: Heidy Narayanan, JEOVANNY)2100 (Due) lisinopril (ZESTRIL) tablet 5 mg, Oral, DAILY, First dose on 07/16/24 at 0900, Until Discontinued 0851 (Given - Provider: Heidy Narayanan, JEOVANNY) senna (SENOKOT) tablet 8.6 mg, NG Tube, AT BEDTIME, First dose on 07/14/24 at 2200, Until Discontinued 2200 (Hold/Not Given - Provider: Radha Schultz RN - Reason: Missed Dose - Comment: SBT) 2042 (Given - Provider: Radha Schultz, JEOVANNY) 2200 (Due) Continuous Medication Order 07/14/2024 07/15/2024 07/16/2024 fentaNYL 10 mcg/mL iv infusion (CANCELED)(Linked Group 1) 25-250 mcg/hr (2.5-25 mL/hr), Intravenous, CONTINUOUS, Starting on 07/14/24 at 1607, Until 07/14/24 at 1816 1526 (IV New Bag - Provider: Beverly Goins, JEOVANNY)1536 (IV Rate Change - Provider: Beverly Goins, RN)1540 (IV Rate Change - Provider: Beverly Goins, RN)1650 (IV Rate Change - Provider: Nany Munson RN) fentaNYL 10 mcg/mL iv infusion (CANCELED)(Linked Group 2) 25-250 mcg/hr (2.5-25 mL/hr), Intravenous, CONTINUOUS, Starting on 07/14/24 at 1847, Until 07/15/24 at 0025 1858 (IV New Bag - Provider: Dillan Cheney RN)1900 (Rate Verify - Provider: Dillan Cheney RN)1932 (IV Rate Change - Provider: Dillan Cheney RN)1999 (Rate Verify - Provider: Radha Schultz RN)2100 (Rate Verify - Provider: Radha Schultz RN)214 (IV Stop - Provider: Radha Schultz RN - Comment: for SBT/extubation)2200 (Mistaken Entry - Provider: Radha Schultz RN - Comment: Cancelled from back documented administration.) midazolam (VERSED) 50 mg in 0.9% NaCl 50 mL iv infusion (CANCELED) 0.5-8 mg/hr (0.5-8 mL/hr), Intravenous, CONTINUOUS, Starting on 07/14/24 at 1847, Until 07/14/24 at 2019 1847 (IV New Bag - Provider: Dillan Cheney RN)1900 (Rate Verify - Provider: Dillan Cheney RN)1999 (Rate Verify - Provider: Radha Schultz RN) midazolam (VERSED) 50-0.9 MG/50ML-% in 0.9% NaCl 50 mL iv infusion (CANCELED)(Linked Group 3) 0.5-8 mg/hr (0.5-8 mL/hr), Intravenous, CONTINUOUS, Starting on 07/14/24 at 1726, Until 07/14/24 at 1816 1657 (IV New Bag - Provider: Nany Munson, JEOVANNY)1700 (IV Rate Change - Provider: Nany Munson, RN)1708 (IV Rate Change - Provider: Nany Munson, RN)1713 (IV Rate Change - Provider: Nany Munson, RN) midazolam (VERSED) 50-0.9 MG/50ML-% in 0.9% NaCl 50 mL iv infusion (CANCELED)(Linked Group 4) 0.5-8 mg/hr (0.5-8 mL/hr), Intravenous, CONTINUOUS, Starting on 07/14/24 at 2100, Until 07/15/24 at 0025 2020 (IV Rate Change - Provider: Radha Schultz RN)2100 (Rate Verify - Provider: Radha Schultz RN)2144 (IV Stop - Provider: Radha Schultz RN - Comment: SBT/Extubation)2200 (Mistaken Entry - Provider: Radha Schultz RN - Comment: Cancelled from back documented administration.) propofol (DIPRIVAN) 1000 MG/100ML infusion (CANCELED)(Linked Group 5) 1-50 mcg/kg/min 100 kg (0.6-30 mL/hr), Intravenous, CONTINUOUS, Starting on 07/14/24 at 1607, Until 07/14/24 at 1655 1531 (IV New Bag - Provider: Beverly Goins RN)1539 (IV Rate Change - Provider: Beverly Goins RN)1656 (IV Stop - Provider: Nany Munson RN) PRN Medication Order 07/14/2024 07/15/2024 07/16/2024 acetaminophen (TYLENOL) tablet (CANCELED) 1,000 mg, Oral, EVERY 6 HOURS PRN, Starting on 07/15/24 at 0027, Until 07/15/24 at 0819, Mild Pain (pain score 1,2,3) 0135 (Given - Provider: Radha Schultz RN) albuterol (PROVENTIL HFA) 108 (90 Base) MCG/ACT HFA inhaler 4 Puff, Inhalation, EVERY 4 HOURS PRN, Starting on 07/14/24 at 1808, Until Discontinued, Shortness of Breath, Wheezing 0748 (MAR Hold - Provider: Jessica Rehman, RT - Reason: RT Questioned Documents Examiner protocol) bisacodyl (DULCOLAX) 10 MG suppository 10 mg, Rectal, DAILY PRN, Starting on 07/14/24 at 1812, Until Discontinued, Constipation dextrose (GLUTOSE) 40 % oral gel(Linked Group 6) 15 g of glucose, Buccal, PRN, Starting on 07/14/24 at 1811, Until Discontinued, blood glucose between 50 - 69 mg/dL, and with no IV access, alert and able to swallow. dextrose (GLUTOSE) 40 % oral gel(Linked Group 6) 30 g of glucose, Buccal, PRN, Starting on 07/14/24 at 1811, Until Discontinued, blood glucose of 49mg/dL or less, and with no IV access, alert and able to swallow. dextrose 10 % iv infusion(Linked Group 6) 125 mL, Intravenous, at 999 mL/hr, PRN, Starting on 07/14/24 at 1811, Until Discontinued, For blood glucose less than 70 mg/dL, with IV access and with loss of consciousness or unable to swallow or NPO dyclonine (SUCRETS) 2 MG lozenge 2 mg, Mouth/Throat, EVERY 2 HOURS PRN, Starting on 07/15/24 at 0104, Until Discontinued, Sore throat fentaNYL (SUBLIMAZE) 10 mcg/mL iv bolus from infusion bag (CANCELED)(Linked Group 1) 25 mcg, IV Bolus, PRN, Starting on 07/14/24 at 1534, Until 07/14/24 at 1816, Agitation 1536 (Given - Provider: Beverly Goins RN - Comment: ordered)1540 (Given - Provider: Beverly Goins RN - Comment: order) glucagon (GLUCAGEN) 1 MG injection(Linked Group 6) 1 mg, Subcutaneous, PRN, Starting on 07/14/24 at 1811, Until Discontinued, For blood glucose less than 70 mg/dL and with no IV access with loss of consciousness or alert and unable to swallow. midazolam (VERSED) 1 mg/mL iv bolus from infusion bag (CANCELED)(Linked Group 3) 1 mg, IV Bolus, PRN, Starting on 07/14/24 at 1655, Until 07/14/24 at 1816, Agitation, If RASS greater than Sedation Goal, administer Midazolam 1 mg over 1 minute with each Midazolam infusion rate increase. 1709 (Given - Provider: Nany Munson, JEOVANNY) midazolam (VERSED) 5 MG/ML injection (COMPLETED) ONCE PRN, Starting on 07/14/24 at 1550, Until 07/14/24 at 1550 1550 (Given - Provider: Nany Munson, JEOVANNY) propofol (DIPRIVAN) 10 mg/mL iv bolus from infusion bottle (CANCELED)(Linked Group 5) 10 mg, IV Bolus, PRN, Starting on 07/14/24 at 1534, Until 07/14/24 at 1655, Agitation, If RASS greater than Sedation Goal, administer Propofol 10 mg over 1 minute with each Propofol infusion rate increase. 1531 (Given - Provider: Beverly Goins RN)1538 (Given - Provider: Beverly Goins RN - Comment: order) Linked Groups Order Group 1: fentaNYL (SUBLIMAZE) 10 mcg/mL iv bolus from infusion bag (CANCELED)Jump to med 25 mcg, IV Bolus, PRN, Starting on 07/14/24 at 1534, Until 07/14/24 at 1816, Agitation And fentaNYL 10 mcg/mL iv infusion (CANCELED)Jump to med 25-250 mcg/hr (2.5-25 mL/hr), Intravenous, CONTINUOUS, Starting on 07/14/24 at 1607, Until 07/14/24 at 1816 Group 2: AWAKENING/BREATHING TRIAL - FENTANYL (CANCELED) Daily (UNLESS active management of high ICP, status epilepticus, alcohol withdrawal, actively titrating vasoactive drugs, neuromuscular blockade): o If RASS remains -1 or lower without sedation agent, reduce Fentanyl to current infusion rate. o After 30 min if RASS remains -1 or lower, stop Fentanyl. o If RASS changes to +2 or greater or pain score increases to greater than 3, resume Fentanyl infusion at the original rate and alert provider. o After 60 minutes of RASS of 0 to +1, resume Fentanyl infusion at the original rate and titrate per infusion orders to target pain score. o If RASS remains -1 or lower with all analgesia and sedation off for 30 minutes, notify provider. And fentaNYL (SUBLIMAZE) 10 mcg/mL iv bolus from infusion bag (CANCELED) 25 mcg, IV Bolus, PRN, Starting on 07/14/24 at 1810, Until 07/15/24 at 0025, Pain, If pain score greater than mild (1,2,3) administer 25 mcg over 1 minute with each fentanyl infusion rate increase. And fentaNYL 10 mcg/mL iv infusion (CANCELED)Jump to med 25-250 mcg/hr (2.5-25 mL/hr), Intravenous, CONTINUOUS, Starting on 07/14/24 at 1847, Until 07/15/24 at 0025 Group 3: midazolam (VERSED) 1 mg/mL iv bolus from infusion bag (CANCELED)Jump to med 1 mg, IV Bolus, PRN, Starting on 07/14/24 at 1655, Until 07/14/24 at 1816, Agitation, If RASS greater than Sedation Goal, administer Midazolam 1 mg over 1 minute with each Midazolam infusion rate increase. And midazolam (VERSED) 50-0.9 MG/50ML-% in 0.9% NaCl 50 mL iv infusion (CANCELED)Jump to med 0.5-8 mg/hr (0.5-8 mL/hr), Intravenous, CONTINUOUS, Starting on 07/14/24 at 1726, Until 07/14/24 at 1816 Group 4: AWAKENING/BREATHING TRIAL - MIDAZOLAM (CANCELED) Daily, for 60 minutes (UNLESS active management of high ICP, status epilepticus, alcohol withdrawal, actively titrating vasoactive drugs, or neuromuscular blockade). o Reduce MIDAZOLAM by of current infusion. o Within 30 min if RASS remains negative 1 or lower, stop MIDAZOLAM infusion o If RASS remains negative 1 or lower with MIDAZOLAM off for 30 min then titrate analgesic medication infusions (if present) per order. o If RASS remains negative 1 or lower with all analgesia and sedation off for 30 minutes, notify provider. o If RASS changes to 2 or greater, resume MIDAZOLAM infusion at the original rate and alert provider. o At the conclusion of the sedation vacation, resume MIDAZOLAM infusion at the original rate and titrate per infusion orders to target RASS score. And midazolam (VERSED) 1 mg/mL iv bolus from infusion bag (CANCELED) 1 mg, IV Bolus, PRN, Starting on 07/14/24 at 2019, Until 07/15/24 at 0025, Agitation, If RASS greater than Sedation Goal, administer Midazolam 1 mg over 1 minute with each Midazolam infusion rate increase. And midazolam (VERSED) 50-0.9 MG/50ML-% in 0.9% NaCl 50 mL iv infusion (CANCELED)Jump to med 0.5-8 mg/hr (0.5-8 mL/hr), Intravenous, CONTINUOUS, Starting on 07/14/24 at 2100, Until 07/15/24 at 0025 Group 5: propofol (DIPRIVAN) 10 mg/mL iv bolus from infusion bottle (CANCELED)Jump to med 10 mg, IV Bolus, PRN, Starting on 07/14/24 at 1534, Until 07/14/24 at 1655, Agitation, If RASS greater than Sedation Goal, administer Propofol 10 mg over 1 minute with each Propofol infusion rate increase. And propofol (DIPRIVAN) 1000 MG/100ML infusion (CANCELED)Jump to med 1-50 mcg/kg/min 100 kg (0.6-30 mL/hr), Intravenous, CONTINUOUS, Starting on 07/14/24 at 1607, Until 07/14/24 at 1655 Group 6: dextrose 10 % iv infusionJump to med 125 mL, Intravenous, at 999 mL/hr, PRN, Starting on 07/14/24 at 1811, Until Discontinued, For blood glucose less than 70 mg/dL, with IV access and with loss of consciousness or unable to swallow or NPO Or glucagon (GLUCAGEN) 1 MG injectionJump to med 1 mg, Subcutaneous, PRN, Starting on 07/14/24 at 1811, Until Discontinued, For blood glucose less than 70 mg/dL and with no IV access with loss of consciousness or alert and unable to swallow. Or dextrose (GLUTOSE) 40 % oral gelJump to med 15 g of glucose, Buccal, PRN, Starting on 07/14/24 at 1811, Until Discontinued, blood glucose between 50 - 69 mg/dL, and with no IV access, alert and able to swallow. Or dextrose (GLUTOSE) 40 % oral gelJump to med 30 g of glucose, Buccal, PRN, Starting on 07/14/24 at 1811, Until Discontinued, blood glucose of 49mg/dL or less, and with no IV access, alert and able to swallow. FOR RECORDS PERTAINING TO PATIENTS WHO ARE OR HAVE BEEN ENROLLED IN A CHEMICAL DEPENDENCY/SUBSTANCEABUSE PROGRAM, SOME INFORMATION MAY BE OMITTED. This clinical summary was aggregated from multiple sources. Caution should be exercised in using it in the provision of clinical care. This summary normalizes information from multiple sources, and as a consequence, information in this document may materially change the coding, format and clinical context of patient data. In addition, data may be omitted in some cases. CLINICAL DECISIONS SHOULD BE BASED ON THE PRIMARY CLINICAL RECORDS. [employer] [facility]. provides no warranty or guarantee of the accuracy or completeness of information in this document.
--- NOTE | 2024-07-22 11:06 | NURSING ---
CALLED FOR CT DISC
--- NOTE | 2024-07-22 13:21 | NURSING ---
[facility]ISTIAN NEUROSURGEON FOR DR PERDOMO
--- NOTE | 2024-07-22 13:30 | NURSING ---
CALLED FOR RIDE, ETA IS 90 TO 2 HRS
--- NOTE | 2024-07-22 13:43 | NURSING ---
ED TO ED DR ANUJ SWARTZ NURSE TO NURSE [phone]
[2024-07-22] MEDS: Acetaminophen 500 MG Tablet 1000 MG PO (14:23)
== END 2024-07-22 15:21 | disposition short-term general hospital (02) ==
PROVIDERS: Emergency Provider Emergency Medicine; PCP Family Medicine; Visit Provider Emergency Medicine
DX: S06.5X0D Traumatic subdural hemorrhage without loss of consciousness, subsequent encounter (principal); K08.89 Other specified disorders of teeth and supporting structures; E78.5 Hyperlipidemia, unspecified; I25.10 Atherosclerotic heart disease of native coronary artery without angina pectoris; Z87.891 Personal history of nicotine dependence; Z95.5 Presence of coronary angioplasty implant and graft; I10 Essential (primary) hypertension; R51.9 Headache, unspecified; Z79.02 Long term (current) use of antithrombotics/antiplatelets; Z87.820 Personal history of traumatic brain injury; V86.3 Unspecified occupant of special all-terrain or other off-road motor vehicle injured in traffic accident
CPT/HCPCS: 70450; 99284

== ENCOUNTER 2024-07-26 09:32 | Emergency (ER) | payer OTHER, SELFPAY ==
[2024-07-26] VITALS (17 sets, daily range): BP systolic 78–147; BP diastolic 56–94; PULSE 44–89; RESP 0–17; TEMP 37–37.2; O2SAT 90–98; BMI 34.0
--- NOTE | 2024-07-26 09:51 | EKG12_ITS ---
Test Reason : HEADACHE Blood Pressure : */* mmHG Vent. Rate : 49 BPM Atrial Rate : 49 BPM P-R Int : 210 ms QRS Dur : 114 ms QT Int : 464 ms P-R-T Axes : 55 60 36 degrees QTcB Int : 419 ms Sinus bradycardia with 1st degree A-V block Otherwise normal ECG Confirmed by NIKKI CONNELL, EBONY ([id number]), communications editor JIMMIE GOMEZ ([id number]) on 07/27/2024 8:21:07 AM Referred By: Confirmed By: EBONY JORDAN MD
--- NOTE | 2024-07-26 09:53 | CT_ITS ---
STUDY: CT BRAIN WITHOUT CONTRAST REASON FOR EXAM: Male, 44 years old. Recent head bleed RADIATION DOSAGE (If Supplied By Facility): CTDIvol = ( 44.99 ) mGy, DLP = ( 779.24 ) mGycm TECHNIQUE: Transaxial CT imaging of the brain was performed without administration of intravenous contrast material. Individualized dose optimization techniques were used for this CT. COMPARISON: Comparison is made with prior study July 22, 2024. FINDINGS: Normal soft tissue structures. Normal calvarium. Persistent acute subdural hematoma overlying the right frontal temporal parietal lobes. There has been essentially no change in the size of the of the subdural hematoma although it is less dense at this time. There is evidence of a shift of the midline from right to left measuring 6.8 mm. Compression of the right lateral ventricle. Normal white matter tracts of the cerebral hemispheres. Normal basal ganglia and thalami. Normal brainstem. Normal cerebellum. There are no findings of an acute ischemic infarction. Normal visualized paranasal sinuses. CT/Brain/Head without Contrast IMPRESSION: Persistent acute right-sided subdural hematoma as described with shift of the midline from right to left of 6.8 mm. The density of the collection has decreased as compared to prior study. Electronically Signed: Oli Austin MD at 10:23 EDT ,
[2024-07-26] MEDS: Ondansetron 4 MG/2 ML Vial IV (09:58)
[2024-07-26] MEDS: Morphine 4 MG/ML Syringe IV (09:58)
--- NOTE | 2024-07-26 10:18 | EDS_ITS ---
HPI History of Present Illness Chief Complaint: Headache Informant: patient and parent Narrative Narrative: Worsening right sided headache since yesterday with nausea and photophobia. Patient had traumatic subdural hemorrhage right side 12 days ago from [facility]. He was transferred to [facility] at that time. He was stable was discharged home. He returned to the ED 4 days ago with worsening headaches there was noted increased expansion, transferred back to [facility]. He states he had embolization this past Tuesday. He was discharged 2 days ago. He was doing fine. He follow- up with his PCP yesterday was having slight headache he was prescribed nortripty line. However pain is worse throughout the night. No new traumas. He reports a prescription of Percocets was written by [facility] however reported pharmacy would not fill it until the physician called back. He has no allergies. He was on aspirin and Plavix with coronary stent history however this has been held since his injury. Prior similar symptoms: Yes [facility] Medical History SANDIP (obstructive sleep apnea) Hyperlipidemia Monoallelic mutation of SCN5A gene Hypertension Dyslipidemia Erectile dysfunction Coronary artery disease Family history of coronary artery disease Hypertriglyceridemia Obesity (BMI 30-39.9) Heart defect Home Medications ?Medication ?Instructions ?Recorded ?Last Taken ?Type nitroglycerin 0.4 mg sublingual 0.4 mg sublingual Q5M PRN 02/03/24 Unknown Rx tablet Cardiac/Chest Pain #10 tabs aspirin 81 mg tablet,delayed 81 mg PO DAILY@0800 #90 tabs 02/27/24 Unknown Rx release atorvastatin 80 mg tablet 80 mg PO QHS #90 tabs 02/27/24 Unknown Rx carvedilol 3.125 mg tablet 3.125 mg PO BID #180 tabs 02/27/24 Unknown Rx lisinopril 5 mg tablet 5 mg PO DAILY #90 tabs 02/27/24 Unknown Rx milk thistle 150 mg capsule 150 mg PO BID 05/21/24 Unknown History omega 2-uqa-tgh-fish oil 60 mg-90 1 cap PO BID 05/21/24 Unknown History mg-500 mg capsule (Fish Oil) vitamin B comp and C no.3 15 mg-10 1 cap PO DAILY 05/21/24 Unknown History mg-50 mg-5 mg-300 mg capsule (B Complex Plus Vitamin C) ticagrelor 90 mg tablet (Brilinta) 90 mg PO BID #180 tabs 06/05/24 Unknown Rx cetirizine 10 mg tablet 10 mg PO DAILY PRN allergy 06/06/24 Unknown Rx symptoms #90 tabs Allergy/AdvReac Type Severity Reaction Status Date / Time No Known Allergies Allergy Verified 07/26/24 09:32 Family History Mother Myocardial infarction Father Heart disease Surgical History Hx of cardiac catheterization (~02/02/24) Stented coronary artery (~02/02/24) H/O repair of rotator cuff H/O knee surgery Social History household members: family housing: house current occupational status: employed 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 Smoking Status: Former smoker how long ago did patient quit smoking: feb 01 2024. second hand exposure: Yes ROS ROS ED Constitutional Constitutional ED: Denies chills, fever(s) or sweats Eyes Eyes: Denies change in vision ENT ENT ED: Denies dysphagia or sore throat Cardiovascular Cardiovascular: Denies chest pain, leg edema, palpitations or racing heartbeat Respiratory/Chest Respiratory/Chest: Denies cough, dyspnea or dyspnea on exertion Gastrointestinal Gastrointestinal: Reports nausea; Denies abdominal pain, diarrhea or vomiting Genitourinary Genitourinary ED: Denies dysuria, hematuria or urinary frequency Musculoskeletal Musculoskeletal: Denies back pain, extremity pain or neck pain Integumentary Denies rash or wounds Neurologic Neurologic: Reports headache(s); Denies paresthesias or weakness EXAM Physical Exam Const Vital Signs: 07/26/24 09:33 07/26/24 09:47 07/26/24 10:00 Temperature 98.6 F Temperature Source Temporal Pulse Rate 89 49 L Respiratory Rate 14 17 Blood Pressure 126/94 H 147/81 H 78/67 L Blood Pressure Mean 104 98 71 Pulse Ox 98 Oxygen Delivery Method Room Air Oxygen Flow Rate (L/min) 07/26/24 10:07 07/26/24 10:15 07/26/24 10:30 Temperature Temperature Source Pulse Rate 46 L 45 L 47 L Respiratory Rate 13 11 L 16 Blood Pressure 133/84 H 132/70 H Blood Pressure Mean 99 85 Pulse Ox Oxygen Delivery Method Oxygen Flow Rate (L/min) 07/26/24 10:32 07/26/24 10:45 07/26/24 11:00 Temperature Temperature Source Pulse Rate 44 L 45 L 44 L Respiratory Rate 16 13 17 Blood Pressure 132/70 H 140/78 H 130/76 H Blood Pressure Mean 90 97 92 Pulse Ox 90 Oxygen Delivery Method Room Air Oxygen Flow Rate (L/min) 07/26/24 11:15 07/26/24 11:36 07/26/24 11:37 Temperature Temperature Source Pulse Rate 46 L Respiratory Rate 14 0 L Blood Pressure 134/82 H Blood Pressure Mean 97 Pulse Ox Oxygen Delivery Method Oxygen Flow Rate (L/min) 07/26/24 11:45 07/26/24 12:00 07/26/24 13:00 Temperature Temperature Source Pulse Rate 52 L Respiratory Rate 0 L 16 Blood Pressure 115/63 128/79 H Blood Pressure Mean 77 95 Pulse Ox 97 98 Oxygen Delivery Method Nasal Cannula Room Air Oxygen Flow Rate (L/min) 2 07/26/24 14:07 07/26/24 14:08 Temperature 98.9 F Temperature Source Pulse Rate 54 L 53 L Respiratory Rate 17 14 Blood Pressure 110/56 L 110/56 L Blood Pressure Mean 74 74 Pulse Ox 97 98 Oxygen Delivery Method Room Air Oxygen Flow Rate (L/min) Positive well nourished and well developed Constitutional Narrative: Nontoxic General Appearance ED: well developed and NAD HEENT Reports moist mucous membranes normocephalic and atraumatic Eyes EOMs intact bilaterally and conjunctivae normal Eyes Narrative: Photophobia General Eye ED: Yes normal appearance of both eyes Neck no lymphadenopathy, supple and no meningeal signs General: Negative for tenderness Chest Wall Chest: Negative for tenderness Resp normal respiratory effort and normal air movement Effort and Inspection: symmetric chest movement; Negative for respiratory distress Cardio regular rate, regular rhythm and no murmurs Peripheral Pulses: pulses 2+ throughout GI normal to inspection, nondistended, normoactive bowel sounds and non-tender Palpation: Negative for guarding or rebound tenderness present Back/Spine no CVA tenderness and no thoracic nor lumbar tenderness Extremity normal to inspection General Extremety ED: Negative for edema or tenderness General Extremity: Negative for edema Neuro oriented x3, CN's II-XII intact bilaterally and no sensory deficits noted Sensorium / Orientation: awake and alert Skin no rashes or lesions noted and no wounds MDM MDM MDM Narrative Medical decision making narrative: Interventions / MDM: Differential diagnosis: Intractable headache, recent subdural hematoma with embolization Diagnosis considered but do not suspect: Worsening hemorrhage however CT with stable findings. My EKG interpretation: Sinus rate of 49, first-degree AV block. No signs of second or third-degree heart block. Imaging independently reviewed and interpreted by myself: CT brain: Improved density no changes in subdural hematoma. External documents reviewed: N/A Test considered but not ordered:N/A ED course: Patient worsening headache recent subdural with embolization. ReCT was ordered. IV established for morphine and Zofran. Reevaluation initially appears to feel better. Still has discomfort. From his history reported his Percocet was unable to be filled until physician was contacted. For this time order for oxycodone p.o. and will monitor. 1200: Reevaluated, states pain waxes and wanes, pain is back up to a 9. IV fentanyl ordered. With intractable pain, recent subdural, and no neurosurgery coverage, unable to keep the patient here. Discussed with him for transfer back up to [facility] for monitoring continue treatment. His PCP has started him on nortriptyline. He is currently on prednisone. He is in agreement to this. Transfer request placed. 1210: [facility] transfer was discussed with. He will be transferred ER to ER for evaluation. Re-evaluation: stable Disposition discussed with patient/family/significant other: Patient and mother Case discussed with consulting clinician: [facility] transfer This note was generated with [employer] dictation software. It may contain incorrect words, spelling, and punctuation that were not noted in checking the note before signing. Radiography Diagnostic Testing: Clinical Impression(s) from Imaging Studies Brain CT 07/26/24 09:53 IMPRESSION: Persistent acute right-sided subdural hematoma as described with shift of the midline from right to left of 6.8 mm. The density of the collection has decreased as compared to prior study. Electronically Signed: Oli Austin MD at 10:23 EDT , Critical Care Time Critical Care Time: Yes Critical care time (excluding procedures): 30-74 minutes, Discussing w/Patient &/or Family/[facility], Discussing w/Consultants, Arranging Admission or Transfer, Performing Direct Patient Care at Bedside and - (35 minutes) Discharge Plan Triage Chief Complaint: Headache ED Provider: Sina Saldivar Dx/Rx/DC Orders Clinical Impression: Subacute subdural hematoma, Intractable headache Prescriptions: No Action omega 3-gbn-fvj-fish oil [Fish Oil] 60-90-500 mg capsule 1 cap PO BID B Complex Plus Vitamin C [id number] mg capsule 1 cap PO DAILY Rx Instructions: give with food (meal/snack) milk thistle 150 mg capsule 150 mg PO BID Rx Instructions: give with meal/snack cetirizine 10 mg tablet 10 mg PO DAILY PRN (Reason: allergy symptoms) Qty: 90 3RF nitroglycerin 0.4 mg Tablet, Sublingual 0.4 mg sublingual Q5M PRN (Reason: Cardiac/Chest Pain) Qty: 10 0RF aspirin 81 mg tablet,delayed release (DR/EC) 81 mg PO DAILY@0800 Qty: 90 3RF atorvastatin 80 mg tablet 80 mg PO QHS Qty: 90 3RF carvedilol 3.125 mg tablet 3.125 mg PO BID Qty: 180 3RF lisinopril 5 mg tablet 5 mg PO DAILY Qty: 90 3RF Brilinta 90 mg tablet 90 mg PO BID Qty: 180 3RF Primary Care Provider: Hill Gan Referrals: Hill Gan MD [Primary Care Provider] - Print Language: Belgian Disposition Disposition: DC/Tx to Another Type of HCF Discharge Date/Time: 07/26/24 14:49
[2024-07-26] MEDS: oxyCODONE 5 MG Tablet PO (11:05)
[2024-07-26] MEDS: fentaNYL 100 MCG/2 ML Ampul 50 MCG IV ×2 (12:20→14:27)
--- NOTE | 2024-07-26 14:14 | NURSING ---
[facility] ETA IS 16 MIN
== END 2024-07-26 14:49 | disposition other institution (70) ==
PROVIDERS: Emergency Provider Emergency Medicine; PCP Family Medicine; Visit Provider Emergency Medicine
DX: S06.5X0D Traumatic subdural hemorrhage without loss of consciousness, subsequent encounter (principal); I25.10 Atherosclerotic heart disease of native coronary artery without angina pectoris; Z87.891 Personal history of nicotine dependence; E78.5 Hyperlipidemia, unspecified; I10 Essential (primary) hypertension; I44.0 Atrioventricular block, first degree; Z95.5 Presence of coronary angioplasty implant and graft; Z87.820 Personal history of traumatic brain injury; Z79.52 Long term (current) use of systemic steroids; V86.05XD Driver of 3- or 4- wheeled all-terrain vehicle (ATV) injured in traffic accident, subsequent encounter
CPT/HCPCS: 70450; 93005; 96374; 96375; 96376; 99283; A4216; J2405

== ENCOUNTER → 2024-11-02 | Outpatient (CLI) | payer OTHER, SELFPAY ==
[2024-11-02 09:41] LABS: ALB/GLOB Ratio 1.4 RATIO (0.9-2.4); AST(SGOT) 26 U/L (15-37); Alanine Aminotransfer ALT/SGPT 47 U/L (16-61); Albumin, Serum 4.1 g/dL (3.2-5.0); Alkaline Phosphatase 43 U/L (45-117); Anion Gap 6 (5-15); BUN 20 mg/dL (7-18); BUN/Creat Ratio 18.7 RATIO (10-20); Calcium,Total 8.8 mg/dL (8.5-10.1); Chloride 108 mmol/L (98-107); Cholesterol 105 mg/dL (200); Creatinine, Serum 1.07 mg/dL (0.70-1.30); EST Glomerular Filtration Rate 80 mL/min (>60); Est Glom Filt Rate - Afr Amer 97 mL/min (>60); Glucose 98 mg/dL (74-106); High Density Lipoprotein 43 mg/dL; Potassium 4.3 mmol/L (3.5-5.1); Protein, Total 7.1 g/dL (6.4-8.2); Sodium Level 139 mmol/L (136-145); Triglycerides 59 mg/dL; Very Low Density Lipoprotein 12 mg/dL (5-40)
== END | disposition home or self-care (01) ==
LOC: LAB 08:05
PROVIDERS: PCP Family Medicine; Referring Provider Family Medicine; Visit Provider Family Medicine
DX: N28.9 Disorder of kidney and ureter, unspecified (principal)
CPT/HCPCS: 36415; 80053; 80061

== ENCOUNTER → 2025-04-23 | Outpatient (CLI) | payer OTHER, SELFPAY | END | disposition home or self-care (01) | LOC: SL 19:58 | PROVIDERS: PCP Family Medicine; Referring Provider Nurse Practitioner Acute Care; Visit Provider Nurse Practitioner Acute Care | DX: S06.9XAA Unspecified intracranial injury with loss of consciousness status unknown, initial encounter (principal); G47.33 Obstructive sleep apnea (adult) (pediatric); X58.XXXA Exposure to other specified factors, initial encounter | CPT/HCPCS: 95811 ==

== ENCOUNTER → 2025-05-02 | Outpatient (CLI) | payer OTHER, SELFPAY ==
[2025-05-02 12:23] LABS: AST(SGOT) 32 U/L (<=37); Alanine Aminotransfer ALT/SGPT 34 U/L (<=46); Albumin, Serum 4.6 g/dL (3.5-5.0); Alkaline Phosphatase 43 U/L (40-129); Bilirubin, Direct 0.34 mg/dL (0.00-0.30); Cholesterol 110 mg/dL (<=200); Globulin 2.3 g/dL (2.2-4.2); Low Density Lipoprotein Calc. 57 mg/dL; Triglycerides 77 mg/dL; Very Low Density Lipoprotein 15 mg/dL (5-40); cholesterol:hdl ratio screen 2.96
== END | disposition home or self-care (01) ==
LOC: LAB 09:03
PROVIDERS: PCP Family Medicine; Referring Provider Physician Assistant Medical; Visit Provider Physician Assistant Medical
DX: E78.00 Pure hypercholesterolemia, unspecified (principal); I25.10 Atherosclerotic heart disease of native coronary artery without angina pectoris
CPT/HCPCS: 36415; 80061; 80076; 83695

== ENCOUNTER → 2025-05-15 | Outpatient (CLI) | payer OTHER, SELFPAY ==
[2025-05-15 17:12] LABS: AST(SGOT) 27 U/L (<=37); Alanine Aminotransfer ALT/SGPT 29 U/L (<=46); Albumin, Serum 4.6 g/dL (3.5-5.0); Alkaline Phosphatase 46 U/L (40-129); Bilirubin, Direct 0.40 mg/dL (0.00-0.30); Cholesterol 127 mg/dL (<=200); Globulin 2.6 g/dL (2.2-4.2); Low Density Lipoprotein Calc. 49 mg/dL; Triglycerides 159 mg/dL; Very Low Density Lipoprotein 32 mg/dL (5-40); cholesterol:hdl ratio screen 2.72
== END | disposition home or self-care (01) ==
PROVIDERS: PCP Family Medicine; Referring Provider Physician Assistant Medical; Visit Provider Physician Assistant Medical
DX: E78.00 Pure hypercholesterolemia, unspecified (principal); Z95.5 Presence of coronary angioplasty implant and graft
CPT/HCPCS: 36415; 80061; 80076; 83036